=== PATIENT | male | born 1955 | race Caucasian/White ===

== ENCOUNTER → 2016-11-06 | Outpatient (CLI) | payer BC ==
[~2016-11-06] MED LIST: GADOBUTROL 10 ML VIAL IVP ONE
== END ==
LOC: FIMAGING 09:17
PROVIDERS: ATTEND Internal Medicine
DX: R51 Headache (principal); R29.818 Other symptoms and signs involving the nervous system
CPT/HCPCS: A9585

== ENCOUNTER → 2016-11-19 | Outpatient (CLI) | payer BC | LOC: FIMAGING 18:47 | PROVIDERS: ATTEND Internal Medicine | DX: M48.02 Spinal stenosis, cervical region (principal); M50.21 Other cervical disc displacement, high cervical region; M46.92 Unspecified inflammatory spondylopathy, cervical region ==

== ENCOUNTER → 2016-11-28 | Outpatient (CLI) | payer BC | LOC: FIMAGING 13:57 | PROVIDERS: ATTEND Internal Medicine | DX: Z13.820 Encounter for screening for osteoporosis (principal); B20 Human immunodeficiency virus [HIV] disease; Z87.81 Personal history of (healed) traumatic fracture ==

== ENCOUNTER → 2017-01-01 | Outpatient (CLI) | payer BC | LOC: FIMAGING 11:45 | PROVIDERS: ATTEND Physician Assistant Surgical | DX: Z09 Encounter for follow-up examination after completed treatment for conditions other than malignant neoplasm (principal); M43.22 Fusion of spine, cervical region; M48.02 Spinal stenosis, cervical region ==

== ENCOUNTER → 2018-04-14 | Outpatient (CLI) | payer BC | LOC: FIMAGING 12:59 | PROVIDERS: ATTEND Internal Medicine | DX: R42 Dizziness and giddiness (principal); E78.5 Hyperlipidemia, unspecified ==

== ENCOUNTER 2018-05-12 18:20 | Emergency (ER) | payer BC ==
[2018-05-12] MEDS ORDERED: ONDANSETRON 4 MG/2 ML VIAL ONE (18:48)
[2018-05-12] MEDS ORDERED: ONDANSETRON 4 MG/2 ML VIAL IVP ONE (18:51)
[2018-05-12] MEDS ORDERED: NS 1,000 ML IV ONE (18:56)
[2018-05-12] MEDS ORDERED: methylPREDNISolone SOD SUCC 125 MG/2 ML VIAL IVP ONE (18:56)
--- NOTE | 2018-05-12 18:59 | EDPHY ---
H & P Time Seen by Provider: 05/12/18 18:36 HPI/ROS: CHIEF COMPLAINT: Dysphagia HISTORY OF PRESENT ILLNESS: The patient is a 63-year-old male who presents emergency department with dysphagia. The patient underwent cervical fusion yesterday by Dr. Marvin. He was discharged. He was doing well until today when he started to have difficulty swallowing. No unable to tolerate any liquids. He has not been able to take his last dose of antibiotic or pain medicine. He has had no fevers or chills. He has no shortness of breath. No stridor. REVIEW OF SYSTEMS: 10 systems were reveiwed and are negative with the exception of the elements mentioned in the history of present illness. Past Medical/Surgical History: Kidney disease, HIV, allergies Past surgical history: Cervical fusion x2, appendectomy The social history: Patient does not smoke Smoking Status: Unknown if ever smoked Physical Exam: Vitals noted GENERAL: No acute distress, alert. HEENT: Eyes normal to inspection. Oropharynx is normal. No signs of dehydration. NECK: No stridor. C-collar is in place. The dressing on his anterior neck is clean dry and intact. There is no significant swelling. RESPIRATORY: Clear to auscultation bilaterally, no rales, rhonchi or wheezing. CVS: Regular rate and rhythm, no rubs, murmurs, or gallops. ABDOMEN: Soft, nontender, nondistended, no organomegaly. BACK: Normal to inspection, no CVA tenderness. SKIN: Normal color, no rash, warm, dry. No pallor. EXTREMITIES: Normal. NEURO/PSYCH: Alert and oriented, normal mood and affect. No obvious deficits Constitutional: Initial Vital Signs Temperature (C) 37.1 C 05/12/18 18:22 Heart Rate 115 H 05/12/18 18:22 Respiratory Rate 16 05/12/18 18:22 Blood Pressure 123/76 H 05/12/18 18:22 O2 Sat (%) 92 05/12/18 18:22 O2 Delivery Mode Room Air Allergies/Adverse Reactions: shellfish derived Allergy (Severe, Verified 05/12/18 18:22) Anaphylaxis Sulfa (Sulfonamide Antibiotics) Allergy (Intermediate, Verified 05/12/18 18:22) Rash Home Medications: Medication Instructions Recorded Abacavir/Dolutegravir/Lamivudi 1 each PO HS 12/28/14 [Triumeq Tablet] Acetaminophen/ASA/Caffeine 1 each PO DAILY PRN 12/28/14 [Excedrin Tablet] Amitriptyline HCl [Elavil 100 MG 100 mg PO HS 12/28/14 (RX)] Levothyroxine [Synthroid] 250 mcg PO DAILY06 12/28/14 Naproxen Sodium [Aleve] 220 mg PO BID PRN 12/28/14 Promethazine HCl [Phenergan] 25 mg PO HS PRN 12/28/14 TESTOSTERONE [Androgel 1.62% pump] 1 aide TD DAILY 12/28/14 Triamcinolone Acetonide [Nasacort] 2 spray EACHNARE DAILY 12/28/14 Ipratropium 0.06% Nasal [Atrovent 2 sprays EACHNARE TID #1 mdi 11/02/15 0.06% Nasal] Medical Decision Making ED Course/Re-evaluation: In the emergency department I discussed possible etiologies with the patient. I answered all his questions. I discussed the case with Dr. Román Latham from Neurosurgery. He recommended admission and x-ray imaging. He also recommended the patient receive Solu-Medrol 125 mg IV. Patient missed his last dose of Keflex was given Ancef 1 g IV. Patient was given morphine 2 mg IV and Zofran 4 mg IV for pain and nausea. I discussed the plan with the patient. Differential Diagnosis: My differential includes but is not limited to postoperative swelling, dysphagia , airway compromise Departure - Departure Disposition: [facility] Inpatient Acute Clinical Impression: Dysphagia Qualifiers: Dysphagia type: unspecified Qualified Code(s): R13.10 - Dysphagia, unspecified Condition: Fair Referrals: Zara Jose MD [Primary Care Provider] - As per Instructions
[2018-05-12] MEDS ORDERED: MAGNESIUM HYDROXIDE 30 ML UDCUP PO PRN (20:21)
[2018-05-12] MEDS ORDERED: BISACODYL 10 MG SUPP PR PRN (20:21)
[2018-05-12] MEDS ORDERED: ONDANSETRON 4 MG/2 ML VIAL IVP PRN (20:21)
[2018-05-12] MEDS ORDERED: METHOCARBAMOL 750 MG in NS 50 ML IV PRN (20:48)
[2018-05-12] MEDS ORDERED: HYDROmorphONE/DILAUDID 1 MG/ML INJ IVP ONE (20:57)
[2018-05-13] MEDS ORDERED: NS 1,000 ML IV ONE (06:26)
[2018-05-13] MEDS ORDERED: oxyCODONE IR 5 MG TAB PO ONE (06:42)
[2018-05-13] MEDS ORDERED: PANTOPRAZOLE SODIUM 40 MG VIAL IVP SCH (09:00)
--- NOTE | 2018-05-13 09:49 | GCON ---
[f rep st] CONSULTATION DATE OF CONSULTATION: 05/13/2018 REASON FOR CONSULTATION: In the emergency room, dysphagia. HOSPITAL COURSE/HISTORY/MAJOR MEDICAL FINDINGS: The patient is a 63-year-old gentleman who underwent C5 to C7 hardware removal with ACDF at C4-5 on 05/11/2018. He was having some difficulty swallowing and presented to the emergency room for further evaluation. Here in the emergency room, he did rece kerry 125 mg of Solu-Medrol and states that his swelling has greatly improved. He is tolerating a smoo thie without any difficulty. He was able to tolerate his medications without problems. The patient denies any new weakness, any difficulty with breathing, any swelling in his throat. REVIEW OF SYSTEMS: Review of systems is negative other than what is stated in the HPI Please see pe rtinent negatives and pertinent positives. PAST MEDICAL HISTORY: Significant for kidney disease, HIV positive status as well as seasonal allerg ies. PAST SURGICAL HISTORY: Significant for prior cervical fusion C5 to C7 with hardware removal and ACDF at C4-5. Prior appendectomy. SOCIAL HISTORY: The patient does not smoke. He does live here locally and his is at bedside with him today. ALLERGIES: Include sulfa and shellfish. HOME MEDICATIONS: Include Triumeq 1 p.o. at bedtime, Excedrin 1 p.o. daily, Elavil 100 mg p.o. at be dtime, Synthroid 250 mcg p.o. daily, Phenergan 25 mg 1 p.o. at bedtime, testosterone gel daily, Nasac ort 2 sprays in each nares daily and Atrovent nasal sprays daily. PHYSICAL EXAM: VITAL SIGNS: BP is 141/84, heart rate is 104, respiratory rate is 18, he is 93% on r oom air, temperature is 36.6. GENERAL: The patient is in no acute distress. He is alert and orient ed x3. He answers all questions appropriately. His affect is appropriate to given situation. NEURO LOGIC: Cranial nerves 2-12 grossly intact. EOMI and PERRLA. Patient has 5/5 and equal bilateral up per and bilateral lower extremities, including deltoids, triceps, biceps, wrist flexors, extensors, i nterossei, intrinsic automatic pilot mechanic, iliopsoas, hamstrings, quadriceps, plantar flexion, dorsiflexion, and EHL. NECK: Soft and palpable and his incision is clean, dry, and intact. DIANDRA drain is serosanguineous. DIAGNOSTIC REVIEW: Patient underwent x-rays which demonstrated intact hardware with some mild prever tebral edema. ASSESSMENT AND PLAN: The patient is a 63-year-old gentleman who is postop day 2 from hardware remova l from C5 to C7 with an ACDF at C4-5 who has dysphagia who has improved with IV steroids. He was see n both by myself and Dr. Marvin in the emergency room this morning. At this point time, we wi ll go ahead and will send him home with a 1 time prescription of Decadron in case he needs this later today and if his dysphagia increases he will call our office prior to taking this medication and fur ther discuss. We will also go ahead and discontinue his DIANDRA drain as it has had low output only 10 cc out yesterday and 10 cc out today. Again, the patient was seen in the emergency room and discharged from the emergency room. /[id number]/MODL
[2018-05-13 09:50] VITALS: BP 141/61
[2018-05-13] MEDS ORDERED: ENOXAPARIN 40 MG/0.4 ML SYR SC SCH (10:00)
[2018-05-13] MEDS ORDERED: LEVOTHYROXINE 100 MCG/5 ML SYR IVP SCH (10:00)
== END 2018-05-13 09:49 | disposition home or self-care (01) ==
LOC: UNDOADMOB 18:52
DX: R13.10 Dysphagia, unspecified (principal); Z98.1 Arthrodesis status; Z90.89 Acquired absence of other organs; Z21 Asymptomatic human immunodeficiency virus [HIV] infection status; Z88.2 Allergy status to sulfonamides; Z91.013 Allergy to seafood
CPT/HCPCS: 96365; J0690; J1170; J2270; J2405; J2800; J2930

== ENCOUNTER → 2018-05-26 | Outpatient (CLI) | payer BC | LOC: FIMAGING 14:33 | PROVIDERS: ATTEND Physician Assistant Surgical | DX: I82.722 Chronic embolism and thrombosis of deep veins of left upper extremity (principal) ==

== ENCOUNTER → 2018-08-05 | Outpatient (CLI) | payer BC | LOC: FIMAGING 11:23 | PROVIDERS: ATTEND Neurological Surgery | DX: Z09 Encounter for follow-up examination after completed treatment for conditions other than malignant neoplasm (principal); Z98.1 Arthrodesis status ==

== ENCOUNTER 2018-08-22 22:42 | Inpatient (IN) | payer BC ==
[2018-08-22] MEDS ORDERED: METOCLOPRAMIDE 10 MG/2 ML VIAL IVP ONE (23:37)
[2018-08-22] MEDS ORDERED: DEXAMETHASONE 10 MG/ML VIAL IVP ONE (23:37)
[2018-08-22] MEDS ORDERED: NS 1,000 ML IV ONE (23:37)
--- NOTE | 2018-08-22 23:37 | EDPHY ---
H & P Stated Complaint: Headache past month, escalating in pain, nausea, hx subarchnoid & neck fusn Source: Patient Exam Limitations: No limitations - Personal History Current Tetanus Diphtheria and Acellular Pertussis (TDAP): Yes - Medical/Surgical History Hx Asthma: Yes Hx Chronic Respiratory Disease: No Hx Diabetes: No Hx Cardiac Disease: No Hx Renal Disease: No Hx Cirrhosis: No Hx Alcoholism: No Hx HIV/AIDS: Yes Hx Splenectomy or Spleen Trauma: No Other PMH: med hx-kidney disease,+HIV,asthma/seasonal allergies. surg-ant fusion c-3-c4-c5,deviated septum, appendectomy, anaphalaxis to shellfish, anterior cervical disectomy fusion Apr 2018 - Social History Smoking Status: Former smoker Time Seen by Provider: 08/22/18 23:31 HPI/ROS: HPI: This is a 63-year-old male who presents with Chief Complaint: Headache past month, escalating in pain, nausea, hx subarchnoid & neck fusn Location: Frontal and right scientologist Quality: Sharp, constant pain Duration: 1 month Signs and Symptoms: no fever, + nausea, no vomiting, no photophobia, no noise sensitivity, no neck stiffness, no ear pain, no tinnitus, no nasal congestion, no sinus pressure, no weakness, no radiation, no aura Timing: Acute, constant Severity: 810 Context: Patient has a history of spontaneous subarachnoid hemorrhage, HIV positive (undetectable viral load and excellent CD4 percentage) that occurred approximately 20 years ago, anterior fusion of C3, C4, C5 with anterior cervical diskectomy and fusion [address] Marvin presents with 1 month history of frontal and right scientologist sharp, constant, nonradiating pain. Pain has continued to escalate over the last few days. Patient avoids NSAIDs secondary to his fusion in 2019 but due to daily headaches, "got the okay to take Excedrin for the last 1 week" with no relief of symptoms. Patient denies thunderclap symptoms or worse headache of life. No previous history of migraine headaches. Patient reports that "Dilaudid has worked in the past." He has a shellfish allergy and adamantly declines IV contrast administration. Does not take any blood thinners. Modifying Factors: Excedrin last week Comment: ROS: A comprehensive 10 system review of systems is otherwise negative aside from elements mentioned in the history of present illness. MEDICAL/SURGICAL/SOCIAL HISTORY: Medical history: kidney disease,+HIV,asthma/seasonal allergies, anaphylaxis to shellfish Surgical history: ant fusion c-3-c4-c5,deviated septum, appendectomy, , anterior cervical disectomy fusion Apr 2018 Social history: Former smoker. Retired. . Family history noncontributory. CONSTITUTIONAL: Extremely well-appearing elderly white male, awake and alert, no obvious distress HEENT: Atraumatic and normocephalic, PERRL, EOMI. Nares patent; no rhinorrhea; no nasal mucosal edema. Septal piercing noted. Tympanic membranes clear. Oropharynx clear, no exudate and moist pink mucosa. Airway patent. No lymphadenopathy. No meningismus. Cardiovascular: Normal S1/S2, regular rate, regular rhythm, without murmur rub or gallop. PULMONARY/CHEST: Symmetrical and nontender. Clear to auscultation bilaterally. Good air movement. No accessory muscle usage. ABDOMEN: Soft, nondistended, nontender, no rebound, no guarding, no peritoneal signs, no masses or organomegaly. No CVAT. EXTREMITIES: 2/2 pulses, strength 5/5, no deformities, no clubbing, no cyanosis or edema. NEUROLOGICAL: no focal neuro deficits. GCS 15. Cranial nerves 2-12 grossly intact. Speech fluent. SKIN: Warm and dry, no erythema. no rash. Good capillary refill. (Davina Asif) Constitutional: Initial Vital Signs Temperature (C) 37.1 C 08/22/18 22:44 Heart Rate 100 08/22/18 22:44 Respiratory Rate 18 08/22/18 22:44 Blood Pressure 149/102 H 08/22/18 22:44 O2 Sat (%) 95 08/22/18 22:44 O2 Delivery Mode Room Air O2 (L/minute) 2 Allergies/Adverse Reactions: shellfish derived Allergy (Severe, Verified 08/22/18 22:51) Anaphylaxis Sulfa (Sulfonamide Antibiotics) Allergy (Intermediate, Verified 08/22/18 22:51) Rash Home Medications: Medication Instructions Recorded Abacavir/Dolutegravir/Lamivudi 1 each PO HS 12/28/14 [Triumeq 600-50-300 mg Tablet] Amitriptyline HCl [Elavil 100 MG 100 mg PO HS 12/28/14 (*)] Levothyroxine [Synthroid 125 mcg 250 mcg PO DAILY06 12/28/14 (*)] Promethazine HCl [Phenergan 25mg 25 mg PO Q6H PRN 12/28/14 (*)] TESTOSTERONE [Androgel 1.62% pump] 1 aide TD DAILY 12/28/14 Albuterol [Proventil Inhaler HFA 1 - 2 puffs IH Q4H PRN 05/12/18 (*)] Ezetimibe [Zetia 10 MG (*)] 10 mg PO DAILY 05/12/18 Folic Acid [Folic Acid 1 MG (*)] 1 mg PO DAILY 05/12/18 Herbals/Supplements -Info Only 1 ea PO DAILY 05/12/18 Methotrexate Sodium [Rheumatrex] 17.5 mg PO SA@09 05/12/18 Omeprazole 40 mg PO DAILY 05/12/18 oxyCODONE IR [Oxycodone Ir (*)] 5 - 10 mg PO Q4H PRN 05/12/18 Fluticasone/Vilanterol [Breo 1 each IH DAILY 08/23/18 Ellipta 200-25 Mcg INH] Sumatriptan Succinate [Imitrex] 100 mg PO DAILY PRN 08/23/18 Medical Decision Making ED Course/Re-evaluation: Vital signs reviewed and show mildly elevated blood pressure upon arrival. Placed on secured entrance monitor. IV access, laboratory studies, along with IV fluids and medications ordered Due to prior history of subarachnoid hemorrhage and daily headache x1 month; head CT imaging ordered I discussed ordering CTA head and neck, but patient adamantly declined due to shellfish allergy. Patient given 1 L normal saline, IV Reglan, IV Dilaudid, IV Decadron and IV Benadryl Notified by RN that patient politely declined Decadron and Benadryl 0020: Called by overnight Radiology who reports head CT scan shows extensive edema in the right cerebral hemisphere with diffuse cortical effacement as well as mass effect with shift of the midline right left about 7 mm. No intracranial hemorrhages suspected. 0022: Spoke with Neurosurgery, Dr. Street, and reviewed head CT scan results. Recommends MRI with and without contrast. Infectious versus neoplastic workup. Blood cultures ordered. Hold off on IV Decadron at the moment. 0037: ED decision to consult hospitalist for admission. Spoke with Dr. Aly, who kindly agrees to admit patient and provide further care. 0103: Laboratory studies reviewed and show no leukocytosis, no anemia, no platelet dysfunction, no coagulopathy. Potassium 3.8, BUN 27, creatinine 1.3 This patient was seen under the supervision of my secondary supervising physician. I evaluated and cared for this patient with attending. (Davina Asif) Differential Diagnosis: Headache including but not limited to subarachnoid hemorrhage, migraine headache , tension headache and infectious causes such as meningitis, pharyngitis and sinusitis. (Davina Asif) - Data Points Laboratory Results: Laboratory Results 08/22/18 23:23 08/22/18 23:23 Medications Given: Amitriptyline HCl (Elavil) 100 mg PO HS IAIN Stop: 02/19/19 20:59 Last Admin: 08/23/18 21:54 Dose: 100 mg Calcium Carbonate (Tums) 500 - 1,000 mg PO TID PRN PRN Reason: Indigestion Stop: 02/19/19 05:04 Last Admin: 08/23/18 08:53 Dose: 1,000 mg Dexamethasone (Decadron Injection) 4 mg IVP Q8HRS IAIN Stop: 02/19/19 20:59 Last Admin: 08/24/18 04:25 Dose: 4 mg Guaifenesin/Codeine Phosphate (Robitussin Ac) 10 ml PO Q6HRS PRN PRN Reason: Cough, Moderate Stop: 02/19/19 08:32 Last Admin: 08/23/18 11:01 Dose: 10 ml Hydromorphone HCl (Dilaudid) 0.5 - 1 mg IVP Q3HRS PRN PRN Reason: Pain, Breakthrough Stop: 09/02/18 04:43 Last Admin: 08/23/18 21:55 Dose: 1 mg Levetiracetam (Keppra) 750 mg PO BID IAIN Stop: 02/19/19 10:44 Last Admin: 08/23/18 21:54 Dose: 750 mg Levothyroxine Sodium (Synthroid) 250 mcg PO DAILY06 IAIN Stop: 02/19/19 10:29 Last Admin: 08/24/18 04:25 Dose: 250 mcg Miscellaneous Medication (Abacavir/Dolutegravir/Lamivudi [Triumeq 600-50-300 Mg Tablet]) 1 each PO HS [facility] Stop: 02/19/19 20:59 Last Admin: 08/24/18 03:19 Dose: Not Given Miscellaneous Medication (Testosterone [Androgel 1.62% Pump]) 1 aide TD DAILY [facility] Stop: 02/19/19 12:14 Last Admin: 08/23/18 13:01 Dose: Not Given Ondansetron HCl (Zofran) 4 mg IVP Q4HRS PRN PRN Reason: Nausea/Vomiting, Can't Take PO Stop: 02/19/19 02:17 Last Admin: 08/23/18 10:59 Dose: 4 mg Oxycodone HCl (Oxycodone Ir) 5 - 10 mg PO Q4HRS PRN PRN Reason: Pain, Severe Able to Take PO Stop: 09/02/18 04:43 Last Admin: 08/24/18 04:30 Dose: 10 mg Pantoprazole Sodium (Protonix) 40 mg PO DAILY [facility] Stop: 02/19/19 10:29 Last Admin: 08/23/18 10:42 Dose: 40 mg Senna/Docusate Sodium (Senokot-S) 1 - 2 tab PO BID IAIN PRN Reason: Protocol Stop: 02/19/19 20:59 Last Admin: 08/23/18 21:54 Dose: 1 tab Discontinued Medications Dexamethasone (Decadron Injection) 10 mg IVP EDNOW ONE Stop: 08/22/18 23:38 Last Admin: 08/23/18 00:08 Dose: Not Given Dexamethasone (Decadron Injection) 4 mg IVP Q6HRS [facility] Stop: 02/19/19 05:59 Last Admin: 08/23/18 07:26 Dose: Not Given Dexamethasone (Decadron Injection) 10 mg IVP ONCE ONE Stop: 08/23/18 07:11 Last Admin: 08/23/18 08:32 Dose: 10 mg Dexamethasone (Decadron Injection) 4 mg IVP Q6HRS [facility] Stop: 02/19/19 12:59 Last Admin: 08/23/18 13:07 Dose: 4 mg Diphenhydramine HCl (Benadryl Injection) 25 mg IVP EDNOW ONE Stop: 08/22/18 23:38 Last Admin: 08/23/18 00:07 Dose: Not Given Hydromorphone HCl (Dilaudid) 0.5 mg IVP EDNOW ONE Stop: 08/22/18 23:39 Last Admin: 08/23/18 00:07 Dose: 0.5 mg Hydromorphone HCl (Dilaudid) 1 mg IVP EDNOW ONE Stop: 08/23/18 02:24 Last Admin: 08/23/18 02:24 Dose: 1 mg Sodium Chloride (Ns) 1,000 mls @ 0 mls/hr IV ONCE ONE; Wide Open PRN Reason: Protocol Stop: 08/22/18 23:38 Last Admin: 08/23/18 00:00 Dose: 1,000 mls Metoclopramide HCl (Reglan Injection) 10 mg IVP EDNOW ONE Stop: 08/22/18 23:38 Last Admin: 08/23/18 00:01 Dose: 10 mg Departure - Departure Disposition: [facility] Inpatient Acute Clinical Impression: Cerebral edema, Midline shift of brain Condition: Fair
[2018-08-22] MEDS ORDERED: HYDROmorphONE/DILAUDID 2 MG/ML INJ IVP ONE (23:38)
[2018-08-22] MEDS ORDERED: HYDROmorphONE/DILAUDID 1 MG/ML INJ ONE (23:40)
--- NOTE | 2018-08-23 00:40 | PDCONSULT ---
Engine Testing Supervisor Note: NEUROSURGERY imaging reviewed, full consult to follow in AM 63M with history of SAH and HIV+, 1 month of headache, CT shows extensive edema in right temporal lobe, mild shift - neoplastic vs. infectious are primary considerations - recommend MRI +/- contrast - if this shows neoplasm, recommend dex 4q6 - lab workup for infection - monitor in SDU or ICU, q2h neurochecks - further recs to follow imaging Yen[facility]
[2018-08-23 00:55] LABS: INR 0.97 (0.83-1.16); PROTIME(PATIENT) 12.5 SEC (12.0-15.0)
[2018-08-23 01:01] LABS: PLATELET COUNT 233 10^3/uL (150-400)
[2018-08-23] MEDS ORDERED: GADOBUTROL 10 ML VIAL IVP ONE (01:13)
[2018-08-23] MEDS ORDERED: ONDANSETRON DISINTEGRATING 4 MG TAB PO PRN (02:18)
[2018-08-23] MEDS ORDERED: ACETAMINOPHEN 325 MG TAB PO PRN (02:18)
[2018-08-23] MEDS ORDERED: HYDROmorphONE/DILAUDID 1 MG/ML INJ ONE (02:19)
[2018-08-23] MEDS ORDERED: HYDROmorphONE/DILAUDID 1 MG/ML INJ IVP ONE (02:23)
[2018-08-23] MEDS ORDERED: CALCIUM CARBONATE 500 MG CHEWABLE TAB PO PRN (05:05)
[2018-08-23] MEDS: HYDROmorphONE/DILAUDID 1 MG/ML INJ IVP PRN ×4 (05:30→21:55)
[2018-08-23] MEDS ORDERED: DEXAMETHASONE 4 MG/ML VIAL IVP SCH ×2 (06:00→13:00)
--- NOTE | 2018-08-23 06:40 | GHP ---
[f rep st] HISTORY AND PHYSICAL DATE OF ADMISSION: 08/23/2018 SOURCE: Patient provides history, appears reliable. Patient's is at bedside and supplements details. EMR was reviewed and case discussed with ED provider. CHIEF COMPLAINT: Headache. HISTORY OF PRESENT ILLNESS: This is a very pleasant 63-year-old gentleman with a past medical history significant for asthma, HIV, GERD, hypothyroidism, BPH, spinal stenosis status post anterior cervical fusion, who presents to the emergency department today with complaints of progressively worsening headaches over the course of the past month. The patient reports pain is frontal in the right temporal region. He denies any associated changes in vision, focal deficits, dysarthria. He has noted in the past 24 hours he started to occasional lean to the right when he is walking but he has not had any unusual falls or injuries. Patient was hiking and tripped on a branch, but did not have any head injury. He again denies any focal deficits. He has been having increasing pain, sharp in nature, constant, worse with coughing, moving, straining. He has had some nausea without any vomiting. Patient does have a remote history of subarachnoid hemorrhage 20 years ago, spontaneous. Given patient's ongoing symptoms, he is to be new for to Neurology for additional evaluation. However, his pain today was increasingly worse, up to 9-10/10. REVIEW OF SYSTEMS: Ten systems reviewed, otherwise negative except as noted above. ALLERGIES: Shellfish and sulfa. HOME MEDICATIONS: As available in EMR, not yet reconciled. Please see EMR. Oxy IR, Flomax, testosterone, ranitidine, Phenergan, MiraLAX, omeprazole, methotrexate, methocarbamol, levothyroxine, probiotic, and fiber tabs, folic acid, Breo Ellipta, finasteride, Zetia, docusate, amitriptyline, albuterol, and Triumeq. The patient reports that over the last several weeks he has been removing medications from his usual medication list including his omeprazole, ranitidine , tamsulosin, finasteride as he thought that it was perhaps contributing to his headache symptoms. PAST MEDICAL HISTORY: Significant for hypothyroidism, hyperlipidemia, GERD, chronic pain, BPH, HIV, asthma, a single seizure 20 years ago, HAV. PAST SURGICAL HISTORY: Significant for anterior C3-4, C4-5 fusion, deviated septum, appendectomy. FAMILY HISTORY: Mother with hemorrhagic CVA. Father with history of ischemic stroke. Mother and sister with history of breast cancer. 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 Denies any tobacco, drugs, or alcohol. CODE: Full. PHYSICAL EXAM: VITALS: Upon arrival to the emergency department, blood pressure 149/102, heart rate 100, respiratory rate 18, O2 saturation 95% on room air, temperature 37.1. Current vitals available, blood pressure is 121/87 , heart rate 76, respiratory rate 18, O2 sat is 96% on room air. GENERAL: No acute distress. Very pleasant adult gentleman is resting quietly in bed. His is at bedside. HEAD: Normocephalic, atraumatic. EYES: Extraocular muscles are grossly intact. Pupils equal, round, symmetric with decreased reactivity to light bilaterally, but symmetric. No scleral icterus or conjunctival injection. ENT: Mucous membranes appear moist. No oropharyngeal erythema. Dentition intact. NECK: Supple, trachea midline. CV: Regular rate and rhythm. No murmurs, rubs, or gallops appreciated. RESPIRATORY: Unlabored breathing. Lung sanchez diminished bilaterally but no wheezes or rhonchi or rales. ABDOMEN: Positive bowel sounds. Soft, nontender to palpation. No rebound, guarding, or masses appreciated. : No suprapubic tenderness to palpation. No CVA tenderness. MUSCULOSKELETAL: Strength grossly normal. Moves all extremities. NEURO: Grossly nonfocal. Cranial nerves 2-12 are intact symmetric bilaterally. Strength 5/5 upper lower extremities. No focal deficits. PSYCH: Thought process, content, questions appropriate. Patient is pleasant and cooperative. LABORATORY STUDIES: WBC 6.71, H and H is 14.7, 43.5, MCV 90.2, platelet count is 233. No bands. PT is 12.5, INR 0.97, PTT is 25.5. Sodium 139, potassium 3.8, chloride 106, CO2 is 23, anion gap 10, BUN 27, creatinine 1.3, GFR of 56, glucose 107, calcium is 9.2. Laboratory studies from 08/16/18, reviewed. Creatinine at that time was 1.4. A1c 5.8. TSH is 7.700 with a free T4 of 1.75. CT head preliminary report was reviewed from [facility], negative for any acute intracranial hemorrhage. There is a large area of edema in the right cerebral hemisphere involving the posterior frontal, anterior parietal and right temporal lobes. There is diffuse cortical effacement of the right cerebral hemisphere with some shift of the midline, [id number] about 7 mm with recommendation for MRI. Preliminary report [facility] MRI brain with and without showing approximately 3.5 x 4.5 x 3.5 cm peripherally enhancing mass centered within the right temporal lobe with nodular enhancing components, likely subacute to chronic hemorrhagic components. Marked surrounding vasogenic edema with mass effect resulting in leftward midline shift approximately 6-7. There is compression of the right lateral ventricle. No acute intracranial hemorrhage identified. Air-fluid level right maxillary sinus. 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 Abscess thought less likely given absence of significant restricted diffusion. Preliminary results were reviewed with the patient and his . ASSESSMENT AND PLAN: Pleasant 63-year-old gentleman with history of human immunodeficiency virus, HLD, gastroesophageal reflux disease, hypothyroidism, asthma, and spinal stenosis, who presents to the emergency department with complaints of 1 month of headache. 1. Right temporal lobe mass. Case was previously discussed with Neurosurgery prior to the MRI with recommendations to initiate steroids if imaging favored a mass. I discussed with the patient risks, benefits, recommendation of initiating high-dose Decadron scheduled. At this time he is not comfortable proceeding with this steroids. He would prefer to additionally discuss with Neurosurgery due to a recent anterior cervical diskectomy. The patient reports he is followed by Dr. Marvin. We will plan to continue with supportive care and pain management including oxy and Dilaudid p.r.n. The patient reports the latter works best for his pain. 2. Nausea. Zofran, status post Reglan in the ED. Continue with supportive care. 3. GERD. The patient declines to reinitiate his PPI or H2 alejo. Tums p.r.n. 4. BPH. Declines starting his regular evening medications including Flomax. 5. History of asthma. Neb p.r.n. 6. Hypothyroidism: Continue levothyroxine. 7. HLD. Resume ezitimibe. 8. HIV. Continue patient's Triumeq. 9. Renal insufficiency, chronic. Continue monitoring electrolytes, currently adequate. 10. History of spinal stenosis. Supportive care, pain medications p.r.n. 11. Fluid, electrolyte, nutrition. Diet as tolerated. Encourage oral hydration. Electrolytes adequate, replace if needed. 12. Prophylaxis SCDs. Holding anticoagulation due to increased bleeding risk. 13. Cor full. 14. Disposition: The patient admitted to inpatient status on SDU for close neurologic monitoring. /[id number]/MODL MTDD
[2018-08-23] MEDS ORDERED: DEXAMETHASONE 10 MG/ML VIAL IVP ONE (07:10)
--- NOTE | 2018-08-23 08:00 | GCON ---
[f rep st] CONSULTATION CHIEF COMPLAINT: Headache for over the past month with escalating pain, nausea with history of subarachnoid hemorrhage years ago with also prior and most recent neck fusion. HISTORY OF PRESENT ILLNESS: The patient is a 63-year-old gentleman who was admitted to the Internal Medicine Service and we were consulted for some edema noted on a CT scan. The patient states over the past month he has had escalating headaches as well as some nausea. He does have a history of chronic headaches. He was seen by his infectious disease doctor who follows him for his HIV status, Dr. Jose, and she ordered a referral to Neurology. The patient saw Waylon Toro at Neurology and an MRI was ordered for this next week. The patient states that he came into the emergency department yesterday with some headaches and imaging was ordered which showed some significant edema. A followup MRI was obtained as well. He describes no fevers or chills. Some nausea. No vomiting. No photophobia. No sensitivity to noise. He denies any neck stiffness. No ringing in his ears. No upper respiratory or lower respiratory complaints such as nasal congestion, cough, shortness of breath. No sinus pressure. He denies any specific weakness, but did state when he was walking yesterday he felt a little unstable on his feet. He does have a history of a prior subarachnoid hemorrhage. He has also had a prior cervical fusion with Dr. Marvin, most recent in April 2018. He did take an Excedrin yesterday to treat his headache, but is off any NSAIDs due to his recent fusion procedure. He was admitted to the intensive care unit and his is at his bedside. No chest pain or shortness of breath. No abdominal complaints. No changes in status. REVIEW OF SYSTEMS: Complete 10-point review of systems was negative aside what was mentioned in HPI. PAST MEDICAL HISTORY: Significant for the followin. Kidney disease. 2. HIV positive. 3. Asthma, seasonal allergies. 4. Anaphylaxis to shellfish. SURGICAL HISTORY: 1. Recent anterior cervical fusion with Dr. Marvin. 2. Deviated septum repair. 3. Appendectomy. 4. Prior cervical fusion years ago. Most recent surgery Dr. Marvin was an additional adjacent segment disease procedure which more adjacent level was added. ALLERGIES: To shellfish and sulfa. HOME MEDICATIONS: Prior to admission, amitriptyline, levothyroxine, Triumeq 600 -50-300, promethazine, testosterone, albuterol, Keflex, Colace, Zetia, Proscar, fluticasone, folic acid, herbal supplements, Robaxin, , omeprazole, MiraLAX, Zantac, Flomax, oxycodone. IMMUNIZATIONS: Reported up to date. TRAVEL: No recent travel. PHYSICAL EXAM: GENERAL: This is an awake, alert, oriented male in no acute distress. MOST RECENT VITAL SIGNS: Blood pressure 121/87 with a MAP of 98, 76 heart rate, 18 respirations, 96% on room air. HEENT: Head is normocephalic, atraumatic. Pupils are equal, round, reactive to light. EOMI is intact. Full visual sanchez by confrontation. Ears are patent. Nose is patent. NECK: Soft and supple. No midline tenderness. Full range of motion in flexion, extension , lateral bending, and rotation. RESPIRATORY AND CARDIAC: Deferred. ABDOMEN: Soft, nontender. No peritoneal signs. AND RECTAL: Deferred. NEURO: Patient is awake, alert, oriented to name, place, location, date, time, situation. Memory is intact to immediate, past, and current events. SPEECH: No aphasia, dysarthria, dysphonia. Cranial nerves 2-12 grossly intact. 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 Reflexes of biceps, triceps, brachioradialis, knee jerk and ankle jerk 2+/4. Toes are downgoing bilaterally. Galeana's negative. Babinski negative. There is no evidence of clonus. The patient does have a left-sided pronator drift. MEDICAL DECISION MAKING/DIAGNOSTIC STUDIES: Laboratory tests obtained on 2018 shows a white count of 6.71 with an H and H of 14.7 and 43.5 with a platelet count of 233. Coags on 08/22/2018, PT of 12.5, INR of 0.97, PTT of 25.5. Chemistry on 08/22/2018, sodium 139, potassium 3.8, chloride 106, CO2 23 , BUN 27, creatinine 1.3, and a glucose of 107. CT scan of the head and MRI of the brain were reviewed which showed extensive edema and a mass lesion with mild shift noted in the right temporal lobe. Considerations for neoplastic versus infectious causes are considered. IMPRESSION: 1. Recent admission, current admission with headaches with right temporal lobe edema, mild shift and noted mass, likely GBM versus less likely infectious cause. 2. Multiple medical conditions including HIV history with patient reported high CD4 count and nondetectable viral load. The patient is under the care of Dr. Jose at [facility] PLAN AND DISCUSSION: The patient is a 63-year-old gentleman that came in to the emergency department with worsening headache. He was seen by Dr. Jose and she did refer him to Neurology. Neurology ordered an MRI for this next week. The patient worsened yesterday with worsening headache. When he came into the emergency department, a CT scan was obtained which showed extensive edema on the right temporal lobe with mild shift. A followup MRI was obtained that showed a large lesion mass in the right temporal lobe, likely GBM, although infectious causes need to be considered. Given his undetectable viral load and high CD4 count per patient's account, infectious cause is less likely. I reviewed the images with Dr. Street. He will see the patient here in the next few hours and review the images and develop a plan accordingly. The images were sent to Dr. Marvin who is his primary neurosurgeon and did his recent cervical fusion. We gave him a dose of 10 mg of Decadron and placed him on 4 q.6 hours Decadron as well. We will await a final visit with Dr. Street here shortly to develop a treatment plan accordingly. NEUROSURGERY STAFF ADDENDUM i have seen and evaluated the patient and I agree with the note by Jabari Valdivia, PAC I suspect that this is a glioblastoma, but lymphoma or infectious process are also considerations. He has a lot of surrounding vasogenic edema and I think a few days of IV steroids would be of benefit. I spoke to him and his family about the likely diagnoses and the natural history and prognosis. will likely try to proceed with biopsy/debulking/resection on Thursday. I will discuss with Dr. Goodrich as well. /[id number]/MODL MTDD
[2018-08-23] MEDS ORDERED: guaiFENesin/CODEINE PHOS 10 ML UDCUP PO PRN (08:33)
[2018-08-23] MEDS ORDERED: BENZONATATE 100 MG CAP PO PRN (08:33)
--- NOTE | 2018-08-23 08:37 | HOSPPROG ---
Hospitalist Progress Note Assessment/Plan: # brain mass - suspect GBM; also consider infection (although VL neg and nl CD4 ), lymphoma, other met - consider further imaging (C/A/P) to eval for primary - will need debulking and biopsy- Dr Street to see soon - decadron, pain control # HIV - well controlled, follows with Dr Jose - josue # BPH - flomax # hypothyroid - synthroid Subjective: still has REYES; seen with his and friends; we reviewed his MRI images Objective: Vital Signs Temp Pulse Resp BP Pulse Ox 37.1 C 76 18 131/87 H 96 08/22/18 22:44 08/23/18 02:48 08/23/18 02:48 08/23/18 04:00 08/23/18 02:48 Laboratory Results 08/23/18 05:57 08/23/18 05:57 08/22/18 08/23/18 08/24/18 05:59 05:59 05:59 Intake Total 250 Balance 250 PT 12.5 SEC (12.0-15.0) 08/22/18 23:23 INR 0.97 (0.83-1.16) 08/22/18 23:23 discussed with Jabari Valdivia MRI personally reviewed high risk - Physical Exam Constitutional: other (slightly unsteady on his feet) Eyes: anicteric sclera Ears, Nose, Mouth, Throat: hearing normal Cardiovascular: No edema Respiratory: no respiratory distress Gastrointestinal: No distension Genitourinary: No salcido in urethra Skin: warm Musculoskeletal: No joint effusion Neurologic: AAOx3 Psychiatric: not anxious ICD10 Worksheet Patient Problems: Problems Problem Status Onset Dysphagia Acute Cerebral edema Acute Midline shift of brain Acute
--- NOTE | 2018-08-23 09:04 | GCON ---
[f rep st] CONSULTATION MONOGRAM MAKER CONSULTATION REASON FOR ADMISSION: Brain mass. HISTORY OF PRESENT ILLNESS: I was asked to see the patient by Dr. Hillary Aly. The patient is an e xtremely pleasant 63-year-old white male, well known to me, with a past medical history including ast hma, chronic cough, hypothyroidism, hyperlipidemia, gastroesophageal reflux disease, benign prostatic hypertrophy, HIV, and a seizure in the past. He presented to the emergency room with severe headach es. These had worsened over the last 24 hours. He was brought to the emergency room, underwent MRI which revealed a right temporal mass. He was placed on Decadron. In discussion with the patient, he states that his headache is improved somewhat. He does admit to a cough which makes his headache wo rse. He was recently on Singulair and took himself off. There is no chest pain, pleuritic-type ches t pain or angina equivalent. There is no fever or night sweats. He is in good spirits. REVIEW OF SYSTEMS: Ten-point review of systems is performed and negative except for what is listed i n HPI. ALLERGIES: Include sulfa and shellfish. FAMILY HISTORY: Significant for stroke. MEDICATIONS: Include Flomax, testosterone, ranitidine, Phenergan, MiraLAX, omeprazole, methotrexate, methocarbamol, levothyroxine, Breo, finasteride, Zetia, amitriptyline, albuterol. SOCIAL HISTORY: No history of tobacco use. No history of alcohol use. 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 He is , is there with his . Has excellent family support. PHYSICAL EXAM: VITAL SIGNS: Blood pressure 131/87, pulse is 76, respiration 18, temperature 37.1, o xygen saturation 96% on room air. GENERAL: He is a well-developed, well-nourished 63-year-old white male who is resting comfortably in no acute distress. HEENT: Eyes: PERRLA, EOMI. Throat shows no erythema or tonsillar hypertrophy. NECK: Supple. No cervical adenopathy. HEART: Regular rate an d rhythm without murmurs, rubs, gallops. LUNGS: Diminished breath sounds but no wheeze. ABDOMEN: Soft, nontender. Bowel sounds are present in all 4 quadrants. EXTREMITIES: No clubbing, cyanosis, or edema. LABORATORIES: White count 6.7, hemoglobin 13, hematocrit 40, platelet count is 217. Sodium 136, pot assium 4.0, chloride 105, CO2 is 22, BUN 21, creatinine 1.1, glucose is 109. IMPRESSION: 1. Brain mass. 2. History of asthma. 3. Chronic cough. 4. Gastroesophageal reflux disease. 5. Human immunodeficiency virus positive with low viral load. 6. Hypothyroidism. 7. Cough. RECOMMENDATIONS: 1. Neurosurgery has been consulted. 2. Adequate pain control. 3. Agree with Decadron. 4. We will add some cough suppressants. /[id number]/MODL
--- NOTE | 2018-08-23 09:15 | ASMTCMCOM ---
CM Note CM Note Notes: Patient admitted for headaches x one month + nausea and gait instability. He has a hx of HIV (followed by Dr Jose) and recent cervial fusion (in Apr, Dr Marvin). Imaging suggests GBM. 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 Discharge needs TBD. Case Management will follow. Date Signed: 08/23/2018 09:14 AM Electronically Signed By:Dominique Linda RN
[2018-08-23] MEDS ORDERED: PROMETHAZINE HCL 25 MG TAB PO PRN (10:24)
[2018-08-23] MEDS ORDERED: ALBUTEROL 60 PUFFS/8 GM MDI IH PRN (10:24)
[2018-08-23] MEDS: LEVOTHYROXINE 125 MCG TAB PO SCH (10:42)
[2018-08-23] MEDS: levETIRAcetam 250 MG TAB PO SCH ×2 (10:42→21:54)
[2018-08-23] MEDS: PANTOPRAZOLE SODIUM 40 MG TAB PO SCH (10:42)
[2018-08-23] MEDS: ONDANSETRON 4 MG/2 ML VIAL IVP PRN (10:59)
--- NOTE | 2018-08-23 11:35 | PCMIDPN ---
Assessment/Plan: 1. Right temporal lobe lesion with mass effect/edema concerning for GBM: Sincerely appreciate neuro surgical assistance. Debulking planned for Thursday. At this point in time, clinical suspicion for underlying infection is low. Although the patient is on low-dose methotrexate and is HIV positive ( with a longstanding undetectable viral load, and excellent CD4 percentage), his net state of immunosuppression is low, making entities such as toxoplasmosis, tuberculoma, fungal infection or primary ASSOCIATE LOAN OFFICER lymphoma less likely. A brain abscess also seems less likely. Again, patient will have a tissue diagnosis on Thursday. Long conversation with patient and his today. Patient is taking the news extremely well. 2. HIV: Continue Triumeq. Have talked with pharmacy about the need to avoid cation binders during his hospitalization. Of note, the patient's daughter is not aware of his HIV diagnosis in they would like to keep that private for now. Subjective: I was notified this morning via a text message from Jabari Valdivia that patient was admitted last night for severe intractable headache. Imaging has revealed lesion in the right temporal lobe concerning for GBM. Came in to see patient, as he has been under my care for HIV for many years now. Patient did come to see me last week for headaches, which have progressed since his cervical fusion in April. He had asked for Imitrex at that time. I felt uncomfortable with that given the severity of the headaches, and referred him to Neurology. Patient had an appointment for an MRI this coming Thursday, but given an intractable headache last night, he presented to the emergency room. Patient is presently hospitalized, on Decadron and his and friends and daughter and her boyfriend are in the room. He has spoken with neuro surgery, and is aware of the probable underlying diagnosis. He states that his pain is under good control, and he is making jokes with me. Objective: Vital Signs Temp Pulse Resp BP Pulse Ox 37.1 C 76 18 131/87 H 96 08/22/18 22:44 08/23/18 02:48 08/23/18 02:48 08/23/18 04:00 08/23/18 02:48 Laboratory Results 08/23/18 05:57 08/23/18 05:57 08/22/18 08/23/18 08/24/18 05:59 05:59 05:59 Intake Total 250 Balance 250 ICD10 Worksheet Patient Problems: Problems Problem Status Onset Cerebral edema Acute Midline shift of brain Acute Dysphagia Acute
[2018-08-23] MEDS: TESTOSTERONE TD SCH (13:01)
[2018-08-23] MEDS ORDERED: MAGNESIUM HYDROXIDE 30 ML UDCUP PO PRN (15:49)
[2018-08-23] MEDS ORDERED: BISACODYL 10 MG SUPP PR PRN (15:49)
[2018-08-23] MEDS ORDERED: POLYETHYLENE GLYCOL 3350 17 GM PKT PO PRN (15:49)
[2018-08-23] MEDS ORDERED: LACTULOSE 20 GM/30 ML UDCUP PO PRN (15:49)
[2018-08-23] MEDS: oxyCODONE IR 5 MG TAB PO PRN (15:58)
[2018-08-23] MEDS ORDERED: SODIUM CL NASAL 45 ML BTL EACHNARE PRN (21:15)
[2018-08-23] MEDS: AMITRIPTYLINE HCL 100 MG TAB PO SCH (21:54)
[2018-08-23] MEDS: SENNOSIDES/DOCUSATE SODIUM TAB PO SCH (21:54)
[2018-08-23] MEDS: DEXAMETHASONE 4 MG/ML VIAL IVP SCH (21:54)
[2018-08-24] MEDS: DOLUTEGRAVIR PO SCH ×2 (03:19→20:51)
[2018-08-24] MEDS: ABACAVIR PO SCH ×2 (03:19→20:51)
[2018-08-24] MEDS: LAMIVUDINE PO SCH ×2 (03:19→20:51)
[2018-08-24] MEDS: LEVOTHYROXINE 125 MCG TAB PO SCH (04:25)
[2018-08-24] MEDS: DEXAMETHASONE 4 MG/ML VIAL IVP SCH ×3 (04:25→20:51)
[2018-08-24] MEDS: oxyCODONE IR 5 MG TAB PO PRN ×3 (04:30→14:43)
[2018-08-24] MEDS: TESTOSTERONE TD SCH (08:02)
[2018-08-24] MEDS: Fluticasone/Vilanterol [Breo Ellipta 200-25 Mcg Inh] IH SCH (08:02)
--- NOTE | 2018-08-24 08:36 | SOAPPROG ---
SOAP Progress Note Assessment/Plan: Assessment: 63 yo male well known to us. HIV+, prior cervical fusions developed worsening REYES and has right temporal mass on MRI Slight left sided weakness Dr. Jose feels infectious process unlikely. Appreciate input Plan: Surgery Thursday with Dr. Street O smallpox hospital ID and medicine following I discussed plan with patient and his Victorino. D/W Dr. Street 08/24/18 08:31 Subjective: In bed, lying down, comforable. States his REYES and nausea are well controlled. Objective: Vital Signs Temp Pulse Resp BP Pulse Ox 37 C 92 17 103/65 98 08/23/18 16:00 08/24/18 07:46 08/24/18 07:46 08/24/18 07:46 08/23/18 20:00 Laboratory Results 08/23/18 05:57 08/23/18 05:57 08/23/18 08/24/18 08/25/18 05:59 05:59 05:59 Intake Total 250 0 Balance 250 0 PT 12.5 SEC (12.0-15.0) 08/22/18 23:23 INR 0.97 (0.83-1.16) 08/22/18 23:23 Neuro: Awake, alert oriented x 4 FC, no droop strength full throughout except slight left silk screen operator and triceps weakness sens +LT ambulates well ICD10 Worksheet Patient Problems: Problems Problem Status Onset Cerebral edema Acute Midline shift of brain Acute Dysphagia Acute
[2018-08-24] MEDS: EZETIMIBE 10 MG TAB PO SCH (08:59)
[2018-08-24] MEDS: levETIRAcetam 250 MG TAB PO SCH ×2 (08:59→20:51)
[2018-08-24] MEDS: PANTOPRAZOLE SODIUM 40 MG TAB PO SCH (08:59)
[2018-08-24] MEDS: SENNOSIDES/DOCUSATE SODIUM TAB PO SCH ×2 (08:59→20:51)
[2018-08-24] MEDS ORDERED: LACTULOSE 20 GM/30 ML UDCUP PO ONE (09:26)
--- NOTE | 2018-08-24 10:26 | PDMN ---
Medical Necessity Medical necessity: MCG: [facility] neurology- 63yoM presents with worsening REYES x 1 month- MRI shows R temporal mass likely GBM, IV decadron will be initiated with likely debulking/biopsy ( pending) . PMHx: hypothyroidism, HDL,GERD, chronic pain, BPH, HIV, asthma, SZ 20 yrs ago, HAV, ACDF, anticipate > 2 MN ongoing med nec care-
--- NOTE | 2018-08-24 11:05 | HOSPPROG ---
Hospitalist Progress Note Assessment/Plan: # brain mass - suspect GBM; also consider infection (although VL neg and nl CD4 ), lymphoma, other met - plan debulking tomorrow by Dr Street - lisa, pain control # HIV - well controlled, follows with Dr Damon salas # BPH - flomax # hypothyroid - synthroid Subjective: somewhat manic today; asking that we not worry as much about him Objective: Vital Signs Temp Pulse Resp BP Pulse Ox 37 C 92 17 103/65 98 08/23/18 16:00 08/24/18 07:46 08/24/18 07:46 08/24/18 07:46 08/23/18 20:00 Laboratory Results 08/23/18 05:57 08/23/18 05:57 08/23/18 08/24/18 08/25/18 05:59 05:59 05:59 Intake Total 250 0 Output Total 200 Balance 250 0 -200 PT 12.5 SEC (12.0-15.0) 08/22/18 23:23 INR 0.97 (0.83-1.16) 08/22/18 23:23 high risk - Physical Exam Constitutional: other (anxious) Eyes: anicteric sclera Ears, Nose, Mouth, Throat: hearing normal Cardiovascular: No edema Respiratory: no respiratory distress Gastrointestinal: No distension Genitourinary: No salcido in urethra Skin: warm Musculoskeletal: no muscle tenderness Neurologic: AAOx3 Psychiatric: anxious ICD10 Worksheet Patient Problems: Problems Problem Status Onset Dysphagia Acute Cerebral edema Acute Midline shift of brain Acute
--- NOTE | 2018-08-24 11:11 | PCMIDPN ---
Assessment/Plan: 1. Right temporal lobe lesion with mass effect/edema concerning for GBM: Sincerely appreciate neuro surgical assistance. Debulking planned for Thursday at 1:45 pm. As per my note yesterday, clinical suspicion for underlying infection is low. Although the patient is on low-dose methotrexate and is HIV positive (with a longstanding undetectable viral load, and excellent CD4 percentage), his net state of immunosuppression is low, making entities such as toxoplasmosis, tuberculoma, fungal infection or primary MAITRE D' lymphoma less likely. A brain abscess also seems less likely. 2. HIV: Continue Triumeq. Have talked with pharmacy about the need to avoid cation binders during his hospitalization. Of note, the patient's daughter is not aware of his HIV diagnosis in they would like to keep that private for now. 3. Miscellaneous: Unclear how long patient will need corticosteroids. If these will be prolonged , need to consider Pneumocystis prophylaxis. Patient developed a rash with Bactrim and has never been on dapsone. Will check G6PD in anticipation of him possibly requiring corticosteroids moving forward. Over 30 min spent with this patient today. 08/24/18 11:13 Subjective: Pain is well controlled. at bedside. Told me they have a friend who is a neurosurgeon at [facility], and they have conveyed this to , as they would like this neurosurgeon to also see the patient's films. Patient wants to go home and come back for his surgery tomorrow, but he understands why this is not possible. Objective: Triumeq No fevers Vital Signs Temp Pulse Resp BP Pulse Ox 37 C 92 17 103/65 98 08/23/18 16:00 08/24/18 07:46 08/24/18 07:46 08/24/18 07:46 08/23/18 20:00 Laboratory Results 08/23/18 05:57 08/23/18 05:57 08/23/18 08/24/18 08/25/18 05:59 05:59 05:59 Intake Total 250 0 Output Total 200 Balance 250 0 -200 Blood cultures no growth - Physical Exam General Appearance: no apparent distress EENT: No scleral icterus, No thrush Skin: No rash, No embolic lesions ICD10 Worksheet Patient Problems: Problems Problem Status Onset Cerebral edema Acute Midline shift of brain Acute Dysphagia Acute
--- NOTE | 2018-08-24 11:24 | PDINTPN ---
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 # Asthma. Controlled on appropriate medical therapy. Followed by Dr. Howell as outpatient # HIV on FARIA therapy. Excellent compliance with Triumeq with undetectable viral load high CD4 count # brain mass. Right temporal lobe lesion with mass effect and edema. Temperature diagnosis includes malignancy such as glioblastoma, infection. Infection less likely given undetectable viral load high CD4 count as well as lack of infectious symptoms # constipation. No bowel movement in over 4 days # ankylosing spondylitis. On oral methotrexate. Next does do Thursday. Will confirm with Neurosurgery that is okay to give next dose postoperatively. # BPH. controlle on flomax # hypothyroidism PLAN # NPO after midnight # to OR tomorrow with Dr. Street for resection # increased bowel regimen and give lactulose x1 # continue steroids for swelling. If this needs to be continued may need PJP prophylaxis. # continue flomax # continue synthroid # continue inhalers # okay to ambulate off monitor as long as he is accompanied by caregiver # Feeding -NPO after midnight # Analgesia APAP, Oxy # Sedation none # Thromboprophylaxis - hold pharmacologic prophylaxis for OR # Head of bed elevated # Ulcer prophylaxis - not indicated # Glucose SSI # Skin no skin breakdown # Delirium - delirium precautions Subjective: No acute events overnight. Pain better controlled. Still no bowel movement in over 4 days. Taking senna. Asking for Viagra. No new fevers, chills, nausea, vomiting Objective: Vital Signs Temp Pulse Resp BP Pulse Ox 36.6 C 89 14 109/63 93 08/24/18 11:14 08/24/18 11:14 08/24/18 11:14 08/24/18 11:14 08/24/18 11:14 Laboratory Results 08/23/18 05:57 08/23/18 05:57 08/23/18 08/24/18 08/25/18 05:59 05:59 05:59 Intake Total 250 0 Output Total 200 Balance 250 0 -200 PT 12.5 SEC (12.0-15.0) 08/22/18 23:23 INR 0.97 (0.83-1.16) 08/22/18 23:23 Physical Exam - Physical Exam General Appearance: alert, no apparent distress EENT: PERRL/EOMI, normal ENT inspection, pharynx normal Neck: full range of motion, supple Respiratory: chest non-tender, lungs clear, normal breath sounds Cardiac/Chest: normal peripheral pulses, regular rate, rhythm, No edema Abdomen: non-tender, soft, No organomegaly Skin: normal color, warm/dry, No cyanosis Extremities: normal range of motion, non-tender, normal inspection Neuro/Psych: no motor/sensory deficits, alert, normal mood/affect, oriented x 3 , No abnormal cerebellar tests ICD10 Worksheet Patient Problems: Problems Problem Status Onset Cerebral edema Acute Midline shift of brain Acute Dysphagia Acute
--- NOTE | 2018-08-24 13:21 | ASMTCMCOM ---
CM Note CM Note Notes: Pt care discussed in rounds with pt and , Victorino. Plan for pt to go for neurosurgery with Dr. Street tomorrow. CM to follow. Plan: TBD Date Signed: 08/24/2018 01:20 PM Electronically Signed By:KEL Del Toro
[2018-08-24] MEDS: HYDROmorphONE/DILAUDID 1 MG/ML INJ IVP PRN (20:50)
[2018-08-24] MEDS: AMITRIPTYLINE HCL 100 MG TAB PO SCH (20:51)
[2018-08-25] MEDS: NS W/ 20 KCl/L 1,000 ML IV SCH (04:21)
[2018-08-25] MEDS: DEXAMETHASONE 4 MG/ML VIAL IVP SCH (05:49)
[2018-08-25] MEDS ORDERED: GADOBUTROL 10 ML VIAL IVP ONE (06:25)
[2018-08-25] MEDS: oxyCODONE IR 5 MG TAB PO PRN (07:39)
[2018-08-25] MEDS: PANTOPRAZOLE SODIUM 40 MG TAB PO SCH (07:39)
[2018-08-25] MEDS: LEVOTHYROXINE 125 MCG TAB PO SCH (07:39)
[2018-08-25] MEDS: SENNOSIDES/DOCUSATE SODIUM TAB PO SCH (07:39)
[2018-08-25] MEDS: levETIRAcetam 250 MG TAB PO SCH (07:40)
[2018-08-25] MEDS: EZETIMIBE 10 MG TAB PO SCH (07:41)
[2018-08-25] MEDS: TESTOSTERONE TD SCH (07:43)
[2018-08-25] MEDS: Fluticasone/Vilanterol [Breo Ellipta 200-25 Mcg Inh] IH SCH (07:44)
--- NOTE | 2018-08-25 08:58 | SOAPPROG ---
SOAP Progress Note Assessment/Plan: Assessment: 63 yo male well known to us. HIV+, prior cervical fusions developed worsening REYES and has right temporal mass on MRI Slight left sided weakness Dr. Jose feels infectious process unlikely. Appreciate input Plan: Surgery today with Dr. Street NPO Stealth MRI done ID and medicine following I discussed plan with patient and his Victorino. D/W Dr. Street Subjective: In bed, feeling ok. No overnight issues. 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
--- NOTE | 2018-08-25 09:37 | PDINTPN ---
Door Opener Progress Note Assessment/Plan: ASSESSMENT 63-year-old male with HIV on heart therapy with new brain mass concerning for GBM and awaiting OR # Asthma. Controlled on appropriate medical therapy. Followed by Dr. Howell as outpatient # HIV on FARIA therapy. Excellent compliance with Triumeq with undetectable viral load high CD4 count # brain mass. Right temporal lobe lesion with mass effect and edema. DDx includes malignancy such as glioblastoma and infection. Infection less likely given undetectable viral load high CD4 count as well as lack of infectious symptoms or significant leukocytosis # constipation. Large BM last night. # ankylosing spondylitis. On oral methotrexate. Next dose Thursday. Will confirm with Neurosurgery that is okay to give next dose postoperatively. # BPH. controlled on flomax # hypothyroidism PLAN # NPO until after surgery today # to OR with Dr. Street for resection # scheduled senna # continue steroids for swelling. Anticipate weaning off after surgery. # continue Flomax # continue Synthroid # continue inhalers # Feeding -NPO # Analgesia APAP, Oxy # Sedation none # Thromboprophylaxis - hold pharmacologic prophylaxis for OR # Head of bed elevated # Ulcer prophylaxis - not indicated # Glucose SSI # Skin no skin breakdown # Delirium - delirium precautions Subjective: Lactulose given x1 for constipation. Large BM overnight. Feeling better this morning. Excited for surgery. No other events. No new fevers, chills, nausea or vomiting. No chest pain. Objective: Vital Signs Temp Pulse Resp BP Pulse Ox 36.6 C 88 16 116/75 96 08/25/18 07:46 08/25/18 07:46 08/25/18 07:46 08/25/18 07:46 08/25/18 07:46 Laboratory Results 08/23/18 05:57 08/23/18 05:57 08/24/18 08/25/18 08/26/18 05:59 05:59 05:59 Intake Total 0 750 Output Total 200 Balance 0 550 PT 12.5 SEC (12.0-15.0) 08/22/18 23:23 INR 0.97 (0.83-1.16) 08/22/18 23:23 Physical Exam - Physical Exam General Appearance: alert, no apparent distress, mild distress EENT: PERRL/EOMI, normal ENT inspection Neck: full range of motion, normal inspection, No thyromegaly Respiratory: chest non-tender, lungs clear, normal breath sounds, No wheezing Cardiac/Chest: normal peripheral pulses, regular rate, rhythm, No edema Abdomen: non-tender, soft, No organomegaly Skin: normal color, warm/dry, No cyanosis Extremities: normal range of motion, non-tender, No pedal edema Neuro/Psych: no motor/sensory deficits, alert, normal mood/affect, oriented x 3 ICD10 Worksheet Patient Problems: Problems Problem Status Onset Cerebral edema Acute Midline shift of brain Acute Dysphagia Acute
[2018-08-25] MEDS ORDERED: CHLORHEXIDINE GLUC HIBICLENS 118 ML BTL TP ONE (12:53)
[2018-08-25] MEDS ORDERED: BUPIVACAINE/EPI 0.25% 30 ML SDV ONE (12:54)
[2018-08-25] MEDS ORDERED: THROMBIN (BOVINE) 5,000 UNIT VIAL TP ONE (12:55)
[2018-08-25] MEDS ORDERED: LR 1,000 ML IV ONE ×2 (12:55→12:56)
[2018-08-25] MEDS ORDERED: BACITRACIN ZINC 0.5 OZ OINTTUBE TP ONE (12:55)
[2018-08-25] MEDS ORDERED: POVIDONE-IODINE 30 GM OINTTUBE TP ONE (12:55)
[2018-08-25] MEDS ORDERED: GENTAMICIN SULFATE 80 MG/2 ML VIAL ONE ×2 (12:55→14:18)
[2018-08-25] MEDS ORDERED: ceFAZolin 2 GM/DEXTROSE 100 ML IV ONE (13:00)
[2018-08-25] MEDS ORDERED: MIDAZOLAM 2 MG/2 ML VIAL IVP ONE (13:50)
--- NOTE | 2018-08-25 13:50 | PDANEPAE ---
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 ANE Past Medical History - Pulmonary History Hx Oxygen in Use at Home: No Hx Sleep Apnea: Yes Sleep Apnea Screening Result - Last Documented: Positive - Endocrine History Hx Diabetes: No - Chronic Pain History Chronic Pain: No ANE Review of Systems Review of systems is: negative Review of Systems: ANE Patient History - Allergies Allergies/Adverse Reactions: shellfish derived Allergy (Severe, Verified 08/22/18 22:51) Anaphylaxis Sulfa (Sulfonamide Antibiotics) Allergy (Intermediate, Verified 08/22/18 22:51) Rash - Home Medications Home medications: home medication list seen and reviewed Home Medications: Abacavir/Dolutegravir/Lamivudi [Triumeq 600-50-300 mg Tablet] 1 each PO HS 12/28 [Last Taken 08/22/18] Amitriptyline HCl [Elavil 100 MG (*)] 100 mg PO HS 12/28/14 [Last Taken 08/22/18 ] Levothyroxine [Synthroid 125 mcg (*)] 250 mcg PO DAILY06 12/28/14 [Last Taken ] Promethazine HCl [Phenergan 25mg (*)] 25 mg PO Q6H PRN 12/28/14 [Last Taken ] TESTOSTERONE [Androgel 1.62% pump] 1 aide TD DAILY 12/28/14 [Last Taken 08/22/18] Albuterol [Proventil Inhaler HFA (*)] 1 - 2 puffs IH Q4H PRN 05/12/18 [Last Taken 05/11/18] Ezetimibe [Zetia 10 MG (*)] 10 mg PO DAILY 05/12/18 [Last Taken 08/22/18] Folic Acid [Folic Acid 1 MG (*)] 1 mg PO DAILY 05/12/18 [Last Taken 08/22/18] Herbals/Supplements -Info Only 1 ea PO DAILY 05/12/18 [Last Taken 05/12/18] Methotrexate Sodium [Rheumatrex] 17.5 mg PO SA@09 05/12/18 [Last Taken 08/22/18] Omeprazole 40 mg PO DAILY 05/12/18 [Last Taken 08/21/18] oxyCODONE IR [Oxycodone Ir (*)] 5 - 10 mg PO Q4H PRN 05/12/18 [Last Taken ] Fluticasone/Vilanterol [Breo Ellipta 200-25 Mcg INH] 1 each IH DAILY 08/23/18 [ Last Taken 08/22/18] Sumatriptan Succinate [Imitrex] 100 mg PO DAILY PRN 08/23/18 [Last Taken Unknown ] - NPO status NPO Since - Liquids (Date): 08/25/18 NPO Since - Liquids (Time): 07:00 NPO Since - Solids (Date): 08/24/18 NPO Since - Solids (Time): 21:00 - Smoking Hx Smoking Status: Former smoker ANE Labs/Vital Signs - Labs Result Diagrams: 08/23/18 05:57 08/23/18 05:57 - Vital Signs Blood Pressure: 136/81 Heart Rate: 82 Respiratory Rate: 14 O2 Sat (%): 93 Height: 170.18 cm Weight: 70 kg ANE Physical Exam - Airway Neck exam: FROM Mallampati Score: Class 1 Mouth exam: normal dental/mouth exam - Pulmonary Pulmonary: no respiratory distress, clear to auscultation - Cardiovascular Cardiovascular: regular rate and rhythym - ASA Status ASA Status: II ANE Anesthesia Plan Anesthesia Plan: general endotracheal anesthesia Lines/Monitors: arterial line
[2018-08-25] MEDS ORDERED: THROMBIN (BOVINE) 20,000 UNIT VIAL TP ONE (14:04)
--- NOTE | 2018-08-25 14:07 | HOSPPROG ---
Hospitalist Progress Note Assessment/Plan: 63 year old male presented with headaches noted to have brain mass concerning for malignancy. # brain mass - suspect GBM; - plan debulking tomorrow by Dr Street - lisa, pain control # HIV - well controlled, follows with Dr Damon salas # BPH - flomax # hypothyroid - synthroid PPX- SCDs, no heparin Fluids- PO, start after surgery Lytes- WNL Nutrition- NPO Cor- Full Dispo- remain ICU for brain mass, with edema, to OR today for resection/ debulking 40 minutes critical care time spent on the management of this patient. Subjective: still weak on left. wants to make sure his meds dont stop Objective: Vital Signs Temp Pulse Resp BP Pulse Ox 36.9 C 82 14 136/81 H 93 08/25/18 12:57 08/25/18 13:50 08/25/18 13:50 08/25/18 13:50 08/25/18 13:50 Laboratory Results 08/23/18 05:57 08/23/18 05:57 08/24/18 08/25/18 08/26/18 05:59 05:59 05:59 Intake Total 0 750 Output Total 200 Balance 0 550 PT 12.5 SEC (12.0-15.0) 08/22/18 23:23 INR 0.97 (0.83-1.16) 08/22/18 23:23 - Physical Exam Constitutional: no apparent distress, appears nourished, not in pain Eyes: PERRL, anicteric sclera, EOMI Ears, Nose, Mouth, Throat: moist mucous membranes, hearing normal, ears appear normal, no oral mucosal ulcers Cardiovascular: regular rate and rhythym, no murmur, rub, or gallop Respiratory: no respiratory distress, no rales or rhonchi, clear to auscultation Gastrointestinal: normoactive bowel sounds, soft, non-tender abdomen, no palpable masses Genitourinary: no bladder fullness, no bladder tenderness, no renal bruits Skin: no rashes or abrasions, no fluctuance, no induration Musculoskeletal: full muscle strength, no muscle tenderness, normal joint ROM Neurologic: other (mild left sided weakness) Psychiatric: interacting appropriately, not anxious, not encephalopathic, thought process linear Lymph, Heme, Immunologic: no cervical LAD, no supraclavicular LAD ICD10 Worksheet Patient Problems: Problems Problem Status Onset Cerebral edema Acute Midline shift of brain Acute Dysphagia Acute
[2018-08-25] MEDS ORDERED: fentaNYL 100 MCG/2 ML INJ ONE ×6 (14:28→18:14)
[2018-08-25] MEDS ORDERED: PROPOFOL 200 MG/20 ML VIAL ONE (14:28)
[2018-08-25] MEDS ORDERED: PROPOFOL/EMULSION 500 MG/50 ML BOTTLE IV ONE ×2 (14:59→18:14)
[2018-08-25] MEDS ORDERED: KETAMINE 200 MG/20 ML VIAL ONE (14:59)
[2018-08-25] MEDS ORDERED: REMIFENTANIL HCL 1 MG VIAL ONE (14:59)
[2018-08-25] MEDS ORDERED: PAPAVERINE HCL 60 MG/2 ML SDV ONE (17:29)
[2018-08-25] MEDS: GENTAMICIN SULFATE 80 MG/2 ML VIAL ONE ×2 (18:03→19:42)
[2018-08-25] MEDS ORDERED: niCARdipine/NACL 200 ML IV SCH (18:30)
[2018-08-25] MEDS ORDERED: niCARdipine/NACL/200 ML BAG IV ONE (18:30)
[2018-08-25] MEDS ORDERED: niCARdipine/NACL 200 ML IV ONE (18:30)
[2018-08-25] MEDS ORDERED: ONDANSETRON 4 MG/2 ML VIAL IVP PRN (18:51)
[2018-08-25] MEDS ORDERED: fentaNYL 100 MCG/2 ML INJ IVP PRN (18:51)
[2018-08-25] MEDS ORDERED: NALOXONE HCL 0.4 MG/ML INJ IVP PRN (18:51)
[2018-08-25] MEDS ORDERED: PROMETHAZINE HCL 25 MG/ML INJ IVP PRN (18:51)
--- NOTE | 2018-08-25 19:35 | GOP ---
[f rep st] OPERATIVE REPORT DATE OF OPERATION: 08/25/2018 SURGEON: Osito Street MD TECHNICAL TRAINING MANAGER: Kristie Power), PAC. ANESTHESIA: General endotracheal. PREOPERATIVE DIAGNOSIS: Large right temporal tumor with significant surrounding vasogenic edema and mass effect. POSTOPERATIVE DIAGNOSIS: Large right temporal tumor with significant surrounding vasogenic edema and mass effect. PROCEDURE PERFORMED: FINDINGS: Successful tumor resection. SPECIMENS: Right temporal brain mass for frozen and permanent section, as well as some tissue saved for possibility of use in clinical trials in the future. ESTIMATED BLOOD LOSS: 100 cc. DESCRIPTION OF PROCEDURE: After informed consent was obtained from the patient, the patient was brou ght to the operating room and was placed in the supine position on the operating table. A formal tyler e-out was performed, identifying the patient by name, medical record number and date of . Preop erative antibiotics were given. The endotracheal tube was placed and general endotracheal anesthesia was smoothly induced. The patient's head was placed in [place], pinned and turned slightly toward the left side. He was given preoperative Decadron and mannitol. The Stealth was then registered to the scalp and checked for accuracy using known surface landmarks. This was used to localize the area of the tumor and a large reverse ? style craniotomy incision was marked consistent with standard pte rional technique. 10 cc of 0.25% Marcaine with epinephrine was infiltrated in the skin for hemostasi s. The head was then prepped and draped in the normal sterile fashion. The skin incision was made u sing a 10 blade and the subcutaneous tissues were dissected using monopolar electrocautery. Marco A cl ips were placed for hemostasis. Care was taken to preserve the frontal branch of the superficial tem poral artery. Once the entirety of the incision was opened, the temporalis muscle and fascia was ope kasandra in line with the incision and a single myocutaneous flap was retracted anteriorly. Once the keyh ole was identified, 3 bur holes were placed in standard pterional technique with a slightly larger li mb posteriorly for the temporal region. The craniotome was then used to turn a large 5 x 5 cm cranio rhonda flap covering the entirety of the temporal lobe. Dural tack-up stitches were placed. The sphen oid wing was drilled down flush with the skull base and some of the inferior and anterior temporal bari ne was removed using Leksell rongeurs. Once all bleeding was controlled with bipolar electrocautery and Gelfoam, the dura was opened in a curvilinear fashion and flapped anteriorly. The brain was then inspected. The Stealth was used to check the exposure and the operative microscope was brought on t he field and the remainder of the procedure was performed under high-power magnification. The Stealt h was used to map the area and a large vein was coursing inferiorly across the temporal lobe from the sylvian fissure. We used this as our posterior border and using bipolar electrocautery and suction, a corticectomy was made anterior to the vein. The 2nd corticectomy was also made in the superior te mporal gyrus and bipolar electrocautery and suction were used to deepen this. The tumor was encounte red and a piece of tumor was sent for frozen section which came back as favoring high-grade glioma. We continued deepening this down to the fusiform gyrus and these 2 corticectomies were connected, rem oving the anterior inferior portion of the temporal lobe. This was sent to be frozen at -80 degrees for possible use if any further possible research studies. At that point, the arachnoid over the rj vian fissure was opened and careful arachnoid dissection down the sylvian fissure was obtained. The carotid artery was identified and then using the inside out technique, the arachnoid bands were divid ed and the M1 segment was identified. We dissected completely along the M1 identifying the limen ins gris and all of the branches of the MCA. A small anterior temporal artery was coagulated and divided as it coursed into the portion of the temporal lobe that was to be removed. The remaining branches o f the MCA were protected and a few were covered with papaverine-soaked Gelfoam to avoid any vasospasm . At this point, the more anterior portion of the superior temporal gyrus was removed and as the dis section carried deeper, the 3rd nerve was identified leading into the ambient cistern. We were able to remove the temporal lobe along the edge of the tentorium and the posterior cerebral artery was zeus ntified. The brainstem above this was also visualized and the basal vein was visualized as well. Th is area was carefully unlocked with care to monitor the branches of the anterior choroidal artery as they coursed in the ambient cistern. We were then able to unlock the uncus completely and it was rem serafin. Then, using the Stealth, we were able to see that there was still some tumor coursing posterio r toward the hippocampus and this was removed using the ultrasonic aspirator. We continued tumor rem oval until we did not see any further abnormal tissue posteriorly and the remaining portion was remov ed with a sub peel dissection on the insular cortex. The entirety of the cavity was inspected and th ere was no further bleeding. A few small bleeding points were coagulated using bipolar electrocauter y and I did not see any further abnormal tissue. The choroid plexus in the lateral ventricle was vis ualized and the choroidal point was also visualized and was indeed preserved. We checked the entiret y of the cavity. Then, with using the navigation to be sure that there were no further areas of tumo r that we needed to be concerned about. We had removed about 6 cm of the anterior temporal lobe at t his point. At this point, the cavity was lined with Surgicel. The somatosensory and motor-evoked po tentials were again checked and these remained completely stable from the beginning of the case. The MCA vessels were perfusing well and did not appear to be compromised. At this point, the wound was copiously irrigated using gentamicin irrigation and irrigation was completely clear. The dura was th en closed using running 4-0 Nurolon. Several central tack-up stitches were placed and a small graft of DuraGen was used where the dura did not come together. The craniotomy flap was then plated back i n place using Synthes titanium plates and screws. A 10-Yoruba DIANDRA drain was placed in the subgaleal s pace and the temporalis muscle and fascia was closed using interrupted 2-0 Vicryl. The galea was betina sed using interrupted 2-0 Vicryl and the skin was closed using a running 3-0 Monocryl. Sterile dress ing was then placed. The patient was removed from the [place] pins and was awakened in the operatin g room and was extubated and transferred to the PACU in stable condition. There were no operative co mplications. I was scrubbed and present for the entire procedure. All sponge and needle counts isaura ect at the end of the case. SURGEON: Osito Street M.D. PROCEDURE: 1. Right frontotemporal craniotomy. 2. 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 3. Use of the operative microscope. 4. Stealth stereotactic neuronavigation for volumetric gross total resection of tumor. BRIEF CLINICAL HISTORY: Viet Sparks is a 63-year-old man who is HIV positive, who presented to the emergency department a couple of days ago with increasing headaches over about a month's time. H e was found to have a large contrast-enhancing mass in the right temporal lobe medially toward the hi ppocampus with surrounding vasogenic edema and significant mass effect. He was placed on steroids an d his symptoms improved. We discussed the options, but that this was likely a glioblastoma versus a lymphoma. We decided to proceed with biopsy and resection. FLUIDS AND URINE OUTPUT: Per the anesthesia record. DRAIN: Subgaleal DIANDRA. COMPLICATIONS: None. /[id number]/MODL
--- NOTE | 2018-08-25 19:40 | POSTOPPROG ---
Post Op Note Date of Operation: 08/25/18 Surgeon: Osito Street Dietary Aide: Rubia Jackson PA-C (Mirabella) Anesthesia: GET(General Endotracheal) Pre-op Diagnosis: Right temporal brain mass Post-op Diagnosis: same Procedure: Right temporal craniotomy for resection of right temporal brain mass Inf/Abcess present in the surg proc area at time of surgery?: No Depth: Organ Space EBL: 100 Complications: None observed
[2018-08-25] MEDS ORDERED: HYDROCODONE/APAP 10/325 TAB PO PRN (19:44)
[2018-08-25] MEDS ORDERED: niCARdipine/NACL 200 ML IV PRN (19:44)
--- NOTE | 2018-08-25 19:44 | NEUSURGPN ---
Assessment/Plan: S: Patient in ICU , still waking up from surgery O: Somnolent, still waking up from surgery Will follow some commands but wuickly falls back asleep PERRL movement of RUE and LUE seen no movement seen yet from LUE/LLE Incision c/d/i- dressed with telfa A: 63 yo male sp right temporal craniotomy for resection of brain mass P: -Admit to ICU -Q1 hour neuro checks -Check Na BID- goal is normal range (135-145) -Decadron 2 week taper starting at 4mg q6 -Final path pending- frozen path likely favors high grade glioma -Postop MRI in am -PT.OT.PAD EXTRACTION TENDER -Strict SBP goal 90-140- Cardene onboard -Call with any changes in neuro/motor exam - Physician Discussed Patient with : Yenifer Patient Seen by : Yenifer Neurosurgery Physical Exam - Vitals, I&O, Labs I and O 08/24/18 08/25/18 08/26/18 05:59 05:59 05:59 Intake Total 0 750 Output Total 200 Balance 0 550 Weight 70 kg 70 kg 70 kg Intake: Oral (ml) 0 500 IV Intake (ml) 250 Output: Urine (ml) 200 Toilet 200 Other: Intake Quantity Yes Yes Sufficient Number of Voids Toilet 6 2 Vital Signs Temp Pulse Resp BP Pulse Ox 36.9 C 82 14 136/81 H 93 08/25/18 12:57 08/25/18 13:50 08/25/18 13:50 08/25/18 13:50 08/25/18 13:50 Laboratory Results 08/23/18 05:57 08/23/18 05:57 ICD10 Worksheet Patient Problems: Problems Problem Status Onset Cerebral edema Acute Midline shift of brain Acute Dysphagia Acute
[2018-08-25] MEDS ORDERED: *MD ORDERING ONLY-DEXAMETHASONE TAPER PO SCH (19:45)
--- NOTE | 2018-08-25 19:47 | POSTANESTH ---
Post Anesthetic Evaluation Cardiovascular Status: Normal, Stable Respiratory Status: Normal, Stable Level of Consciousness/Mental Status: Unconscious Pain Control: Adequate, Prn Tx Ordered Nausea/Vomiting Control: Adequate, Prn Tx Ordered Complications Possibly Related to Anesthesia: None Noted Notes: Pt stable with OA in place in ICU. Not responsive. BG and ABG ordered
[2018-08-25] MEDS: FAMOTIDINE 20 MG TAB PO SCH (21:16)
[2018-08-25] MEDS: ONDANSETRON 4 MG/2 ML VIAL IVP PRN (21:46)
[2018-08-26] MEDS: HYDROmorphONE/DILAUDID 1 MG/ML INJ IVP PRN ×6 (00:52→22:34)
[2018-08-26] MEDS: DEXAMETHASONE 4 MG/ML VIAL IVP SCH ×3 (01:22→08:17)
[2018-08-26] MEDS: ABACAVIR PO SCH ×2 (01:22→21:05)
[2018-08-26] MEDS: LAMIVUDINE PO SCH ×2 (01:22→21:05)
[2018-08-26] MEDS: DEXAMETHASONE 4 MG TAB PO SCH ×4 (01:22→19:11)
[2018-08-26] MEDS: DOLUTEGRAVIR PO SCH ×2 (01:22→21:05)
[2018-08-26] MEDS: AMITRIPTYLINE HCL 100 MG TAB PO SCH ×2 (01:22→20:10)
[2018-08-26] MEDS: levETIRAcetam 250 MG TAB PO SCH ×3 (01:23→20:10)
[2018-08-26 06:01] LABS: PLATELET COUNT 199 10^3/uL (150-400)
--- NOTE | 2018-08-26 07:42 | NEUSURGPN ---
Assessment/Plan: S: Doing well overall. Has expected headache this morning. 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 Street Neurosurgery Physical Exam - Vitals, I&O, Labs I and O 08/25/18 08/26/18 08/27/18 05:59 05:59 05:59 Intake Total 750 1437 Output Total 200 2790 Balance 550 -1353 Weight 70 kg 70 kg 76.8 kg Intake: Oral (ml) 500 IV Intake (ml) 250 IV Infused (ml) 1437 NS W/ 20 KCl/L 1,000 ml @ 957 100 mls/hr IV CONT IAIN Rx#:[id number] niCARdipine/NACL 200 ml @ 480 Titrate IV PRN PRN Rx#: [id number] Output: Urine (ml) 200 2600 Toilet 200 2600 DIANDRA Drain Output (ml) 190 #1 Right Head 190 Other: Intake Quantity Yes Sufficient Number of Voids Toilet 2 Vital Signs Temp Pulse Resp BP Pulse Ox 36.9 C 99 16 116/50 L 93 08/25/18 12:57 08/26/18 04:00 08/26/18 04:00 08/26/18 04:00 08/26/18 04:00 Laboratory Results 08/26/18 05:45 08/26/18 05:45 ICD10 Worksheet Patient Problems: Problems Problem Status Onset Cerebral edema Acute Midline shift of brain Acute Dysphagia Acute
[2018-08-26] MEDS: NS W/ 20 KCl/L 1,000 ML IV SCH (07:53)
[2018-08-26] MEDS: SENNOSIDES/DOCUSATE SODIUM TAB PO SCH ×3 (07:57→20:10)
[2018-08-26] MEDS: LEVOTHYROXINE 125 MCG TAB PO SCH (07:57)
[2018-08-26] MEDS ORDERED: DEXAMETHASONE 4 MG/ML VIAL IVP ONE (08:15)
[2018-08-26] MEDS: Fluticasone/Vilanterol [Breo Ellipta 200-25 Mcg Inh] IH SCH (08:37)
[2018-08-26] MEDS: oxyCODONE IR 5 MG TAB PO PRN ×3 (08:48→20:10)
[2018-08-26] MEDS: FAMOTIDINE 20 MG TAB PO SCH ×2 (08:48→20:10)
[2018-08-26] MEDS: PANTOPRAZOLE SODIUM 40 MG TAB PO SCH (08:48)
[2018-08-26] MEDS: EZETIMIBE 10 MG TAB PO SCH (08:48)
--- NOTE | 2018-08-26 09:39 | PCMIDPN ---
Assessment/Plan: 1. 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 Dr. Jerez will see patient this afternoon to discuss treatment moving forward. 2. HIV: Continue Triumeq. Have talked with pharmacy about the need to avoid cation binders during his hospitalization. If he needs an antacid, please use something other than Tums. Have discontinued Tums from his med list. Of note, the patient's daughter is not aware of his HIV diagnosis in they would like to keep that private for now. 3. Miscellaneous: Unclear how long patient will need corticosteroids. If these will be prolonged , need to consider Pneumocystis prophylaxis. Patient developed a rash with Bactrim and has never been on dapsone. G6PD is pending. Subjective: Events of past 24 hr reviewed. Patient is status post a right frontotemporal craniotomy for a large right temporal mass. Preliminary pathology shows a high- grade glioma. Patient is doing well, walking with physical therapy. He knows where he is an why he is here. There is some obvious left-sided neglect. Objective: Triumeq Decadron Vital Signs Temp Pulse Resp BP Pulse Ox 37.3 C 88 13 126/91 H 95 08/26/18 08:00 08/26/18 08:40 08/26/18 08:40 08/26/18 08:24 08/26/18 08:40 Laboratory Results 08/26/18 05:45 08/26/18 05:45 08/25/18 08/26/18 08/27/18 05:59 05:59 05:59 Intake Total 750 1437 Output Total 200 0000 625 Balance 550 -6654 -784 - Physical Exam General Appearance: alert, no apparent distress, other (Dressing in place over scalp) Skin: No rash Neuro/Psych: oriented x 3 ICD10 Worksheet Patient Problems: Problems Problem Status Onset Cerebral edema Acute Midline shift of brain Acute Dysphagia Acute
[2018-08-26] MEDS: TESTOSTERONE TD SCH (10:27)
--- NOTE | 2018-08-26 11:34 | HOSPPROG ---
Hospitalist Progress Note Assessment/Plan: 63 year old male presented with headaches noted to have brain mass concerning for malignancy. # brain mass - suspect GBM- status post debulking by Dr. Street yesterday. - decadron IV 4mg Q6 today -MRI at noon -systolic 90-140, on cardene gtt -sodium 135-145 -DIRECTOR SPECIALTY,neuro checks -keppra 750 BID # HIV - well controlled, follows with Dr Jose. - triumeq -no cation binders or chelating medications. -if remains on steroids for any length of time may need to consider PJP prophy # BPH - flomax # hypothyroid - synthroid PPX- SCDs, no heparin Fluids- PO, start after surgery Lytes- WNL Nutrition- NPO Cor- Full Dispo- remain ICU for brain mass, with edema, neuro monitoring, 40 minutes critical care time spent on the management of this patient. Subjective: pain fairly severe, like a headache Objective: Vital Signs Temp Pulse Resp BP Pulse Ox 37.3 C 88 13 126/91 H 95 08/26/18 08:00 08/26/18 08:40 08/26/18 08:40 08/26/18 08:24 08/26/18 08:40 Laboratory Results 08/26/18 05:45 08/26/18 05:45 08/25/18 08/26/18 08/27/18 05:59 05:59 05:59 Intake Total 750 1437 Output Total 200 2790 625 Balance 550 -1353 -625 PT 12.5 SEC (12.0-15.0) 08/22/18 23:23 INR 0.97 (0.83-1.16) 08/22/18 23:23 - Physical Exam Constitutional: no apparent distress, appears nourished, not in pain, other ( posterior craniotomy with ruth, appears CDI, ) Eyes: PERRL, anicteric sclera, EOMI Ears, Nose, Mouth, Throat: moist mucous membranes, hearing normal, ears appear normal, no oral mucosal ulcers Cardiovascular: regular rate and rhythym, no murmur, rub, or gallop Respiratory: no respiratory distress, no rales or rhonchi, clear to auscultation Gastrointestinal: normoactive bowel sounds, soft, non-tender abdomen, no palpable masses Genitourinary: no bladder fullness, no bladder tenderness, no renal bruits Skin: no rashes or abrasions, no fluctuance, no induration Musculoskeletal: full muscle strength, no muscle tenderness, normal joint ROM Neurologic: AAOx3, sensation intact bilaterally Psychiatric: interacting appropriately, not anxious, not encephalopathic, thought process linear Lymph, Heme, Immunologic: no cervical LAD, no supraclavicular LAD ICD10 Worksheet Patient Problems: Problems Problem Status Onset Cerebral edema Acute Midline shift of brain Acute Dysphagia Acute
[2018-08-26] MEDS ORDERED: GADOBUTROL 10 ML VIAL IVP ONE (11:35)
--- NOTE | 2018-08-26 12:04 | PDINTPN ---
Desk Representative Progress Note Assessment/Plan: ASSESSMENT 63-year-old male with HIV on heart therapy with new brain mass s/p craniotomy and resection 08/26/18 # Asthma. Controlled on appropriate medical therapy. Followed by Dr. Howell as outpatient # HIV on FARIA therapy. Excellent compliance with Triumeq with undetectable viral load high CD4 count # brain mass. Right temporal lobe lesion with mass effect and edema. s/p resection 08/26/18. Prelim path favors high grade glioma. No e/o infection. # constipation. improved # ankylosing spondylitis. On oral methotrexate. Next dose Thursday. Will confirm with Neurosurgery that is okay to give next dose postoperatively. # BPH. controlled on flomax # hypothyroidism PLAN # speech, PT/OT # Q2 neuro checks for now, okay per NS to reduce to Q4 starting this evening. # scheduled senna # 2 week dexamethasone taper per NS # continue Flomax # continue Synthroid # continue inhalers # Feeding -reg diet # Analgesia APAP, Oxy # Sedation none # Thromboprophylaxis - holding until okay per NS # Head of bed elevated # Ulcer prophylaxis - not indicated # Glucose SSI # Skin no skin breakdown # Delirium - delirium precautions Subjective: Went to OR yesterday for craniotomy and tumor resection. Had large BM day prior. Prelim path favors high grade glioma. Pain well controlled. No fevers, chills, nausea or vomiting. Able to take PO, mild L sided visual field cut otherwise intact Objective: Vital Signs Temp Pulse Resp BP Pulse Ox 37.3 C 96 18 132/59 H 91 L 08/26/18 08:00 08/26/18 09:00 08/26/18 09:00 08/26/18 09:00 08/26/18 09:00 Laboratory Results 08/26/18 05:45 08/26/18 05:45 08/25/18 08/26/18 08/27/18 05:59 05:59 05:59 Intake Total 750 1437 Output Total 200 2790 625 Balance 550 -1353 -625 PT 12.5 SEC (12.0-15.0) 08/22/18 23:23 INR 0.97 (0.83-1.16) 08/22/18 23:23 Physical Exam - Physical Exam General Appearance: alert, no apparent distress EENT: other (craniotomy bandage clean dry and intact) Respiratory: chest non-tender, lungs clear, normal breath sounds Cardiac/Chest: normal peripheral pulses, regular rate, rhythm, edema Abdomen: non-tender, soft Skin: normal color, warm/dry, No cyanosis Extremities: non-tender, normal inspection, No pedal edema, No swelling Neuro/Psych: other (mild visual field deficit, no other gross focal deficits, no significant weakness) ICD10 Worksheet Patient Problems: Problems Problem Status Onset Cerebral edema Acute Midline shift of brain Acute Dysphagia Acute
--- NOTE | 2018-08-26 19:09 | GCON ---
[f rep st] CONSULTATION INPATIENT ONCOLOGY CONSULTATION DATE OF CONSULTATION: 08/26/2018 REQUESTING PHYSICIAN: Dr. Zara Jose REASON FOR CONSULTATION: Newly diagnosed high-grade glioma. HISTORY OF PRESENT ILLNESS: The patient is a 63-year-old man with newly diagnosed high-grade glioma, likely a glioblastoma. He reported headaches for about a month and had some brain imaging which giancarlo wed a 4.9 cm tumor in the right temporal lobe. He was not having any neurological deficits or seizur es. He was taken to the operating room yesterday by Dr. Street who completely resected the tumor. Th e frozen section appeared to be consistent with a glioblastoma, though the final pathology is pending . The patient is complaining of headache but, otherwise, is doing well postoperatively. PAST MEDICAL HISTORY: HIV disease. He is on highly active anti-retroviral therapy and has a good CD 4 count with undetectable viral load. CURRENT MEDICATIONS: Include Elavil, Tessalon Perles, dexamethasone, Zetia, Keppra, Synthroid, metho trexate 17.5 mg p.o. weekly. ALLERGIES: He is allergic to sulfa which causes a rash. FAMILY HISTORY: Noncontributory. SOCIAL HISTORY: He quit smoking 20 years ago. Denies alcohol use currently. 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 He is . REVIEW OF SYSTEMS: Aside from pertinent positives in HPI, 14-point review of systems is negative. PHYSICAL EXAMINATION: VITAL SIGNS: Temperature 37.3, blood pressure 132/59, heart rate 96, oxygen s aturation 91% on 4 L. GENERAL: He was in no acute distress. HEENT: Sclerae anicteric. Oropharynx clear. NECK: Supple, without lymphadenopathy. LUNGS: Clear to auscultation bilaterally. CARDIAC : Regular rate and rhythm. No murmurs, gallops, or rubs. ABDOMEN: Normoactive bowel sounds. Nont lacy. EXTREMITIES: Without edema. 2+ pulses. NEUROLOGICAL: He is alert and oriented x3. Strengt h and sensation were intact. LABORATORY DATA: Basic metabolic panel and CBC were unremarkable. IMPRESSION: This is a 63-year-old man, human immunodeficiency virus positive, with newly diagnosed b rain tumor, likely high-grade glioma. RECOMMENDATIONS: We discussed that in general these tumors are not curable, but life expectancy can be extended by the use of postoperative radiation and chemotherapy, followed by adjuvant chemotherapy with Temodar. We discussed the potential side effects which include nausea and immunosuppression. Since he is allergic to Bactrim, he will be placed on dapsone for PCP prophylaxis. Given that his HI V is well controlled, I do not think that should pose a limitation to our ability to treat him effect ively for this disease. I emphasized to him that the pathology is preliminary and that the exact histologic diagnosis may andrew nge after careful pathological review. I would like to see him back in my clinic in 1-2 weeks to dis cuss the final results and make arrangements for the next steps in his therapy once he has recovered from surgery. /[id number]/MODL
[2018-08-26] MEDS ORDERED: hydrALAZINE 20 MG/ML VIAL IVP PRN (22:49)
[2018-08-27] MEDS: KETOROLAC 15 MG/1 ML SDV IVP SCH ×4 (01:18→18:31)
[2018-08-27] MEDS: DEXAMETHASONE 4 MG TAB PO SCH ×4 (01:18→18:31)
[2018-08-27] MEDS: ONDANSETRON 4 MG/2 ML VIAL IVP PRN (01:22)
[2018-08-27] MEDS: oxyCODONE IR 5 MG TAB PO PRN ×4 (04:12→20:41)
[2018-08-27] MEDS: LEVOTHYROXINE 125 MCG TAB PO SCH (05:35)
[2018-08-27] MEDS: Fluticasone/Vilanterol [Breo Ellipta 200-25 Mcg Inh] IH SCH (08:34)
[2018-08-27] MEDS: levETIRAcetam 250 MG TAB PO SCH ×2 (09:31→20:40)
[2018-08-27] MEDS: EZETIMIBE 10 MG TAB PO SCH (09:31)
[2018-08-27] MEDS: FAMOTIDINE 20 MG TAB PO SCH ×2 (09:31→20:19)
[2018-08-27] MEDS: PANTOPRAZOLE SODIUM 40 MG TAB PO SCH (09:32)
[2018-08-27] MEDS: TESTOSTERONE TD SCH (09:32)
[2018-08-27] MEDS: SENNOSIDES/DOCUSATE SODIUM TAB PO SCH ×2 (09:32→20:40)
--- NOTE | 2018-08-27 10:38 | NEUSURGPN ---
Date of Surgery: 08/25/18 Post Op Day: 2 Assessment/Plan: 63 yo male POD #2 sp right temporal craniotomy for resection of brain mass P: -Optimize pain control- tylenol/norco for headaches -Q4 hour neuro checks -DIANDRA drain removed without difficulty -MRI Brain done- shows some area of possible stroke but is asymptomatic, shows good resection -Check Na BID- goal is normal range (135-145)- 137 this am -Decadron 2 week taper starting at 4mg q6 -Final path pending- frozen path likely favors high grade glioma -PT.OT.MEDICAL RECORD CODER -Strict SBP goal 90-140 -Call with any changes in neuro/motor exam -Transfer to the floor Discussed with Dr. Street. Subjective: Having pain at the surgical site. Objective: Awake. Alert. PERRL. EOMI Facial expression symmetrical Incision c/d/i Following commands - Physician Discussed Patient with Dr.: Street Neurosurgery Physical Exam - Vitals, I&O, Labs I and O 08/26/18 08/27/18 08/28/18 05:59 05:59 05:59 Intake Total 1437 720 Output Total 2790 1315 Balance -1353 -595 Weight 70 kg 76.8 kg 77 kg Intake: Oral (ml) 400 IV Infused (ml) 1437 320 NS W/ 20 KCl/L 1,000 ml @ 957 320 100 mls/hr IV CONT IAIN Rx#:[id number] niCARdipine/NACL 200 ml @ 480 Titrate IV PRN PRN Rx#: [id number] Output: Urine (ml) 2600 1175 Catheter 625 Toilet 2600 Urinal 550 DIANDRA Drain Output (ml) 190 140 #1 Right Head 190 140 Other: Intake Quantity Yes Sufficient Number of Voids Catheter 1 Toilet 1 Vital Signs Temp Pulse Resp BP Pulse Ox 37.2 C 89 13 111/76 93 08/27/18 08:00 08/27/18 09:00 08/27/18 09:00 08/27/18 09:00 08/27/18 09:00 Laboratory Results 08/26/18 05:45 08/27/18 05:40 ICD10 Worksheet Patient Problems: Problems Problem Status Onset Cerebral edema Acute Midline shift of brain Acute Dysphagia Acute
--- NOTE | 2018-08-27 11:32 | ASMTCMCOM ---
CM Note CM Note Notes: PT/OT are recommending inpatient rehab for the patient. [facility] inpatient rehab states they are submitting insurance auth with [employer] and have accepted the patient. Patient not medically stable yet for d/c. Pain control still being refined. CM following. Date Signed: 08/27/2018 11:31 AM Electronically Signed By:Karol Mcdaniel LCSW
--- NOTE | 2018-08-27 14:30 | PDINTPN ---
Turn Down Attendant Progress Note Assessment/Plan: ASSESSMENT 63-year-old male with HIV on heart therapy with new brain mass s/p craniotomy and resection 08/26/18 # Asthma. Controlled on appropriate medical therapy. Followed by Dr. Howell as outpatient # HIV on FARIA therapy. Excellent compliance with Triumeq with undetectable viral load high CD4 count # R temporal lobe brain mass. s/p resection 08/26/[address]. Prelim path with high-grade glioma. Suspect glioblastoma. Dr. Jerez consulted and now following Prelim path favors high grade glioma. No e/o infection. # constipation. improved # ankylosing spondylitis. On oral methotrexate. Next dose Thursday. # hypothyroidism PLAN # speech, PT/OT # Q4 neuro checks # scheduled senna # 2 week dexamethasone taper per NS # continue Flomax # continue Synthroid # continue inhalers # transfer to floor # Feeding -reg diet # Analgesia APAP, Oxy # Sedation none # Thromboprophylaxis - holding until okay per NS # Head of bed elevated # Ulcer prophylaxis - not indicated # Glucose SSI # Skin no skin breakdown # Delirium - delirium precautions Subjective: DIANDRA drain out without issue. MRI with small symptomatic infarct, other post surgical changes expected. No fevers, chills, nausea, vomiting. Objective: Vital Signs Temp Pulse Resp BP Pulse Ox 37.3 C 79 12 127/85 H 98 08/27/18 12:00 08/27/18 12:51 08/27/18 12:51 08/27/18 12:51 08/27/18 12:51 Laboratory Results 08/26/18 05:45 08/27/18 05:40 08/26/18 08/27/18 08/28/18 05:59 05:59 05:59 Intake Total 1437 720 Output Total 2790 1315 Balance -1353 -595 PT 12.5 SEC (12.0-15.0) 08/22/18 23:23 INR 0.97 (0.83-1.16) 08/22/18 23:23 Physical Exam - Physical Exam General Appearance: alert, no apparent distress EENT: other (Right scalp dressing in place. No new bleeding or swelling. Extraocular movements intact. No conjunctiva pallor) Neck: supple, normal inspection, No thyromegaly Respiratory: No respiratory distress, No accessory muscle use, No stridor Cardiac/Chest: regular rate, rhythm, No edema, No JVD Abdomen: No guarding, No rebound, No rigid Back: Normal inspection Skin: normal color, warm/dry, No cyanosis Extremities: normal range of motion, non-tender, normal inspection Neuro/Psych: other (Left-sided visual field defects. Otherwise current nerves grossly normal) ICD10 Worksheet Patient Problems: Problems Problem Status Onset Cerebral edema Acute Midline shift of brain Acute Dysphagia Acute
--- NOTE | 2018-08-27 14:58 | HOSPPROG ---
Hospitalist Progress Note Assessment/Plan: 63 year old male presented with headaches noted to have brain mass concerning for malignancy. # brain mass - suspect GBM- status post debulking by Dr. Street yesterday. 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 - triumeq -no cation binders or chelating medications. -if remains on steroids for any length of time may need to consider PJP prophy # BPH - flomax # hypothyroid - synthroid PPX- SCDs, no heparin Fluids- PO, start after surgery Lytes- WNL Nutrition- NPO Cor- Full Dispo- safe to transfer to floor. Case discussed with critical care on MD rounds. Subjective: still substantial pain today Objective: Vital Signs Temp Pulse Resp BP Pulse Ox 37.3 C 79 12 127/85 H 98 08/27/18 12:00 08/27/18 12:51 08/27/18 12:51 08/27/18 12:51 08/27/18 12:51 Laboratory Results 08/26/18 05:45 08/27/18 05:40 08/26/18 08/27/18 08/28/18 05:59 05:59 05:59 Intake Total 1437 720 Output Total 2790 1315 210 Balance -1353 -595 -210 PT 12.5 SEC (12.0-15.0) 08/22/18 23:23 INR 0.97 (0.83-1.16) 08/22/18 23:23 - Physical Exam Constitutional: no apparent distress, appears nourished, not in pain Eyes: PERRL, anicteric sclera, EOMI Ears, Nose, Mouth, Throat: moist mucous membranes, hearing normal, ears appear normal, no oral mucosal ulcers Cardiovascular: regular rate and rhythym, no murmur, rub, or gallop Respiratory: no respiratory distress, no rales or rhonchi, clear to auscultation Gastrointestinal: normoactive bowel sounds, soft, non-tender abdomen, no palpable masses Genitourinary: no bladder fullness, no bladder tenderness, no renal bruits Skin: no rashes or abrasions, no fluctuance, no induration Musculoskeletal: full muscle strength, no muscle tenderness, normal joint ROM Neurologic: AAOx3, sensation intact bilaterally Psychiatric: interacting appropriately, not anxious, not encephalopathic, thought process linear Lymph, Heme, Immunologic: no cervical LAD, no supraclavicular LAD ICD10 Worksheet Patient Problems: Problems Problem Status Onset Cerebral edema Acute Midline shift of brain Acute Dysphagia Acute
--- NOTE | 2018-08-27 17:27 | PCMIDPN ---
Assessment/Plan: 1. 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 After long discussion today, he is willing to go to rehabilitation upstairs when ready. He will also proceed with XRT in a few weeks, and chemotherapy as outlined by Dr. Jerez. 2. HIV: Continue Triumeq. Again, if he needs an antacid, please use something other than Tums. Have discontinued Tums from his med list. Of note, the patient's daughter is not aware of his HIV diagnosis in they would like to keep that private for now. 3. Miscellaneous: Decadron taper in process. When pt starts Temodar, will need to initiate Dapsone. G6PD level fine. Also of note, in addition to neurosurgery, pt's would like neurology on board as well, magi given concern about new and subtle neuro deficits. I spoke to Waylon Toro, who will provide backstory to Juan Daniel Teddy on Thursday. This was conveyed to pt's . Over 30 mins spent with pt today. 08/27/18 17:28 Subjective: Working with speech therapy. C/o headache. Seen by Dr. Jerez yesterday. Pt decided to proceed with chemotherapy. Spent quite some time talking to him about need for rehab moving forward. In the end, he was agreeable after talking to me and several of his friends who are employees here at [facility]. Objective: tmax 37.3 Vital Signs Temp Pulse Resp BP Pulse Ox 37.3 C 86 14 134/80 H 97 08/27/18 12:00 08/27/18 17:08 08/27/18 17:08 08/27/18 17:08 08/27/18 17:08 Laboratory Results 08/26/18 05:45 08/27/18 05:40 08/26/18 08/27/18 08/28/18 05:59 05:59 05:59 Intake Total 2427 720 Output Total 4840 1315 210 Balance -1353 -595 -210 ICD10 Worksheet Patient Problems: Problems Problem Status Onset Cerebral edema Acute Midline shift of brain Acute Dysphagia Acute
[2018-08-27] MEDS: AMITRIPTYLINE HCL 100 MG TAB PO SCH (20:40)
[2018-08-27] MEDS: DOLUTEGRAVIR PO SCH (20:42)
[2018-08-27] MEDS: LAMIVUDINE PO SCH (20:42)
[2018-08-27] MEDS: ABACAVIR PO SCH (20:42)
[2018-08-28] MEDS: KETOROLAC 15 MG/1 ML SDV IVP SCH ×4 (00:24→17:47)
[2018-08-28] MEDS: DEXAMETHASONE 4 MG TAB PO SCH ×4 (00:25→17:48)
[2018-08-28] MEDS: oxyCODONE IR 5 MG TAB PO PRN ×4 (05:23→21:42)
[2018-08-28] MEDS: LEVOTHYROXINE 125 MCG TAB PO SCH (05:23)
[2018-08-28] MEDS: PANTOPRAZOLE SODIUM 40 MG TAB PO SCH (08:18)
[2018-08-28] MEDS: EZETIMIBE 10 MG TAB PO SCH (08:19)
[2018-08-28] MEDS: FAMOTIDINE 20 MG TAB PO SCH (08:19)
[2018-08-28] MEDS: levETIRAcetam 250 MG TAB PO SCH ×2 (08:19→21:42)
[2018-08-28] MEDS: SENNOSIDES/DOCUSATE SODIUM TAB PO SCH ×2 (08:19→21:42)
[2018-08-28] MEDS: DAPSONE 100 MG TAB PO SCH (08:19)
[2018-08-28] MEDS: Fluticasone/Vilanterol [Breo Ellipta 200-25 Mcg Inh] IH SCH (08:20)
[2018-08-28] MEDS: TESTOSTERONE TD SCH (08:23)
[2018-08-28] MEDS ORDERED: METHOTREXATE 2.5 MG TAB PO SCH (09:00)
--- NOTE | 2018-08-28 09:45 | NEUSURGPN ---
Date of Surgery: 08/25/18 Post Op Day: 3 Assessment/Plan: 63 yo male POD #3 sp right temporal craniotomy for resection of brain mass P: -Optimize pain control- tylenol/norco for headaches -Q4 hour neuro checks -MRI Brain done- shows some area of possible stroke, maybe with mild symptoms from this, should improve, shows good resection -Check Na BID- goal is normal range (135-145) -Decadron 2 week taper starting at 4mg q6 -Final path pending- frozen path likely favors high grade glioma -ID following, medicine following for additional issues. -oncology has seen -PT.OT.HEALTH EDUCATOR -SBP goal 90-140 OK for Dispo from NS perspective. -Call with any changes in neuro/motor exam -medsurg status Discussed with Dr. Street. Subjective: much discussion regarding potential diagnosis. States PT has noted some right side neglect. Partner at bedside. Objective: NAD INcision dry/dressed cnii-xii appear grossly intact ? left side neglect/field cut, otherwise visual acuity intact PEARLA, EOMI MAEx4, 5/5= mild dysmetria finger to nose left compared to right SILT - Physician Discussed Patient with : Yenifer Neurosurgery Physical Exam - Vitals, I&O, Labs I and O 08/27/18 08/28/18 08/29/18 05:59 05:59 05:59 Intake Total 720 750 Output Total 1315 210 Balance -595 540 Weight 76.8 kg 70.7 kg Intake: Oral (ml) 400 750 IV Infused (ml) 320 NS W/ 20 KCl/L 1,000 ml @ 320 100 mls/hr IV CONT IAIN Rx#:[id number] Output: Urine (ml) 1175 210 Catheter 625 Urinal 550 210 DIANDRA Drain Output (ml) 140 #1 Right Head 140 Other: Intake Quantity Yes Sufficient Number of Voids Catheter 1 Toilet 1 2 Microbiology 08/23/18 01:20 Blood Culture - Final Blood 08/23/18 01:20 Blood Culture - Final Blood Vital Signs Temp Pulse Resp BP Pulse Ox 36.3 C 77 16 112/73 92 08/28/18 07:30 08/28/18 07:30 08/28/18 07:30 08/28/18 07:30 08/28/18 07:30 Laboratory Results 08/26/18 05:45 08/28/18 05:39 ICD10 Worksheet Patient Problems: Problems Problem Status Onset Cerebral edema Acute Midline shift of brain Acute Dysphagia Acute
--- NOTE | 2018-08-28 13:56 | HOSPPROG ---
Hospitalist Progress Note Assessment/Plan: 63 year old male presented with headaches noted to have brain mass concerning for malignancy. # brain mass - suspect GBM- status post debulking by Dr. Street. 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 - triumeq -no cation binders or chelating medications. -started on dapsone 100mg qd # BPH - flomax # hypothyroid - synthroid PPX- SCDs, no heparin Fluids- PO, start after surgery Lytes- WNL Nutrition- NPO Cor- Full Dispo- safe to transfer to floor. likely transfer to inpatient rehab in next 1- 2 days. Case discussed with critical care on MD rounds. Subjective: pain still an issue. Objective: Vital Signs Temp Pulse Resp BP Pulse Ox 36.3 C 77 16 112/73 92 08/28/18 07:30 08/28/18 07:30 08/28/18 07:30 08/28/18 07:30 08/28/18 07:30 Microbiology 08/23/18 01:20 Blood Culture - Final Blood 08/23/18 01:20 Blood Culture - Final Blood Laboratory Results 08/26/18 05:45 08/28/18 05:39 08/27/18 08/28/18 08/29/18 05:59 05:59 05:59 Intake Total 720 750 Output Total 1315 210 Balance -595 540 PT 12.5 SEC (12.0-15.0) 08/22/18 23:23 INR 0.97 (0.83-1.16) 08/22/18 23:23 - Physical Exam Constitutional: no apparent distress, appears nourished, not in pain Eyes: PERRL, anicteric sclera, EOMI Ears, Nose, Mouth, Throat: moist mucous membranes, hearing normal, ears appear normal, no oral mucosal ulcers Cardiovascular: regular rate and rhythym, no murmur, rub, or gallop Respiratory: no respiratory distress, no rales or rhonchi, clear to auscultation Gastrointestinal: normoactive bowel sounds, soft, non-tender abdomen, no palpable masses Genitourinary: no bladder fullness, no bladder tenderness, no renal bruits Skin: no rashes or abrasions, no fluctuance, no induration Musculoskeletal: full muscle strength, no muscle tenderness, normal joint ROM Neurologic: AAOx3, sensation intact bilaterally Psychiatric: interacting appropriately, not anxious, not encephalopathic, thought process linear Lymph, Heme, Immunologic: no cervical LAD, no supraclavicular LAD ICD10 Worksheet Patient Problems: Problems Problem Status Onset Cerebral edema Acute Midline shift of brain Acute Dysphagia Acute
[2018-08-28] MEDS: AMITRIPTYLINE HCL 100 MG TAB PO SCH (21:42)
[2018-08-28] MEDS: DOLUTEGRAVIR PO SCH (21:47)
[2018-08-28] MEDS: LAMIVUDINE PO SCH (21:47)
[2018-08-28] MEDS: ABACAVIR PO SCH (21:47)
[2018-08-29] MEDS: KETOROLAC 15 MG/1 ML SDV IVP SCH ×3 (00:39→12:12)
[2018-08-29] MEDS: DEXAMETHASONE 4 MG TAB PO SCH ×4 (00:39→20:44)
[2018-08-29 04:46] LABS: PLATELET COUNT 202 10^3/uL (150-400)
[2018-08-29] MEDS: oxyCODONE IR 5 MG TAB PO PRN ×4 (06:26→21:06)
[2018-08-29] MEDS: LEVOTHYROXINE 125 MCG TAB PO SCH (06:26)
[2018-08-29] MEDS: Fluticasone/Vilanterol [Breo Ellipta 200-25 Mcg Inh] IH SCH (07:57)
--- NOTE | 2018-08-29 08:45 | NEUSURGPN ---
Assessment/Plan: 63 yo male POD #4 sp right temporal craniotomy for resection of brain mass. 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 Discussed with Dr. Street. Subjective: has some headache, worse with coughing or hiccups. Otherwise doing OK, ready to go home. We spent a long time discussing issues pertaining to the probable diagnosis. Objective: NAD INcision dry/dressed cnii-xii appear grossly intact left side neglect/field cut, otherwise visual acuity intact PEARLA, EOMI MAEx4, 5/5= mild dysmetria finger to nose left compared to right SILT - Physician Discussed Patient with Dr.: Street Neurosurgery Physical Exam - Vitals, I&O, Labs I and O 08/28/18 08/29/18 08/30/18 05:59 05:59 05:59 Intake Total 750 1250 Output Total 210 Balance 540 1250 Weight 70.7 kg 71.1 kg Intake: Oral (ml) 750 1250 Output: Urine (ml) 210 Urinal 210 Other: Intake Quantity Yes Sufficient Number of Voids Toilet 2 4 Urinal 3 Number of Stools Urinal 0 Microbiology 08/23/18 01:20 Blood Culture - Final Blood 08/23/18 01:20 Blood Culture - Final Blood Vital Signs Temp Pulse Resp BP Pulse Ox 37.1 C 69 18 125/88 H 91 L 08/29/18 07:39 08/29/18 07:57 08/29/18 07:57 08/29/18 07:39 08/29/18 07:57 Laboratory Results 08/29/18 04:26 08/29/18 04:26 ICD10 Worksheet Patient Problems: Problems Problem Status Onset Cerebral edema Acute Midline shift of brain Acute Dysphagia Acute
[2018-08-29] MEDS: SENNOSIDES/DOCUSATE SODIUM TAB PO SCH ×2 (10:14→20:44)
[2018-08-29] MEDS: levETIRAcetam 250 MG TAB PO SCH ×2 (10:14→20:00)
[2018-08-29] MEDS: EZETIMIBE 10 MG TAB PO SCH (10:14)
[2018-08-29] MEDS: PANTOPRAZOLE SODIUM 40 MG TAB PO SCH (10:14)
[2018-08-29] MEDS: DAPSONE 100 MG TAB PO SCH (10:21)
[2018-08-29] MEDS ORDERED: BACLOFEN 10 MG TAB PO ONE (10:59)
[2018-08-29] MEDS: TESTOSTERONE TD SCH (13:22)
--- NOTE | 2018-08-29 13:25 | HOSPPROG ---
Hospitalist Progress Note Assessment/Plan: 63 year old male presented with headaches noted to have brain mass concerning for malignancy. # brain mass - suspect GBM- status post debulking by Dr. Street. 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 - triumeq -no cation binders or chelating medications. -started on dapsone 100mg qd # BPH - flomax # hypothyroid - synthroid #Hiccups- trial of baclofen 5 mg today. PPX- SCDs, no heparin Fluids- PO, start after surgery Lytes- WNL Nutrition- NPO Cor- Full Dispo- safe to transfer to floor. likely transfer to inpatient rehab in next 1- 2 days. Case discussed with critical care on MD rounds. Subjective: still having pain, now has hiccups. Objective: Vital Signs Temp Pulse Resp BP Pulse Ox 37.1 C 69 18 125/88 H 91 L 08/29/18 07:39 08/29/18 07:57 08/29/18 07:57 08/29/18 07:39 08/29/18 07:57 Laboratory Results 08/29/18 04:26 08/29/18 04:26 08/28/18 08/29/18 08/30/18 05:59 05:59 05:59 Intake Total 750 1250 Output Total 210 Balance 540 1250 PT 12.5 SEC (12.0-15.0) 08/22/18 23:23 INR 0.97 (0.83-1.16) 08/22/18 23:23 - Physical Exam Constitutional: no apparent distress, appears nourished, not in pain Eyes: PERRL, anicteric sclera, EOMI Ears, Nose, Mouth, Throat: moist mucous membranes, hearing normal, ears appear normal, no oral mucosal ulcers Cardiovascular: regular rate and rhythym, no murmur, rub, or gallop Respiratory: no respiratory distress, no rales or rhonchi, clear to auscultation Gastrointestinal: normoactive bowel sounds, soft, non-tender abdomen, no palpable masses Genitourinary: no bladder fullness, no bladder tenderness, no renal bruits Skin: no rashes or abrasions, no fluctuance, no induration Musculoskeletal: full muscle strength, no muscle tenderness, normal joint ROM Neurologic: AAOx3, sensation intact bilaterally Psychiatric: interacting appropriately, not anxious, not encephalopathic, thought process linear Lymph, Heme, Immunologic: no cervical LAD, no supraclavicular LAD ICD10 Worksheet Patient Problems: Problems Problem Status Onset Cerebral edema Acute Midline shift of brain Acute Dysphagia Acute
[2018-08-29] MEDS ORDERED: IBUPROFEN 600 MG TAB PO PRN (19:22)
[2018-08-29] MEDS: AMITRIPTYLINE HCL 100 MG TAB PO SCH (20:44)
[2018-08-29] MEDS: LAMIVUDINE PO SCH (20:45)
[2018-08-29] MEDS: DOLUTEGRAVIR PO SCH (20:45)
[2018-08-29] MEDS: ABACAVIR PO SCH (20:45)
[2018-08-29] MEDS ORDERED: DEXAMETHASONE 4 MG TAB PO SCH (21:00)
[2018-08-30] MEDS: KETOROLAC 15 MG/1 ML SDV IVP SCH (00:05)
[2018-08-30] MEDS: LEVOTHYROXINE 125 MCG TAB PO SCH (06:13)
[2018-08-30] MEDS: oxyCODONE IR 5 MG TAB PO PRN ×2 (07:26→12:32)
[2018-08-30 07:43] VITALS: BP 111/74
[2018-08-30] MEDS: DAPSONE 100 MG TAB PO SCH (08:55)
[2018-08-30] MEDS: PANTOPRAZOLE SODIUM 40 MG TAB PO SCH (08:56)
[2018-08-30] MEDS: EZETIMIBE 10 MG TAB PO SCH (08:56)
[2018-08-30] MEDS: SENNOSIDES/DOCUSATE SODIUM TAB PO SCH (08:56)
[2018-08-30] MEDS: DEXAMETHASONE 4 MG TAB PO SCH (08:56)
[2018-08-30] MEDS: levETIRAcetam 250 MG TAB PO SCH (08:56)
[2018-08-30] MEDS: TESTOSTERONE TD SCH (08:58)
[2018-08-30] MEDS: Fluticasone/Vilanterol [Breo Ellipta 200-25 Mcg Inh] IH SCH (09:15)
--- NOTE | 2018-08-30 10:42 | SOAPPROG ---
SOAP Progress Note Assessment/Plan: Assessment: 63 yo M sp right craniotomy for resection of right sided lesion Plan: neuro: stable and doing well overall PT/OT on keppra on decadron likely dc to [facility] today please call with neuro changes follow up with Dr Street in [address] Street 08/30/18 10:40 Subjective: + mild headache, no N/V. No weakness. Objective: Vital Signs Temp Pulse Resp BP Pulse Ox 37.2 C 80 16 111/74 93 08/29/18 20:00 08/30/18 07:41 08/30/18 07:41 08/30/18 07:41 08/30/18 07:41 Laboratory Results 08/29/18 04:26 08/29/18 04:26 08/29/18 08/30/18 08/31/18 05:59 05:59 05:59 Intake Total 1250 980 Balance 1250 980 PT 12.5 SEC (12.0-15.0) 08/22/18 23:23 INR 0.97 (0.83-1.16) 08/22/18 23:23 AAOx4, +FC PERRL, EOMI MELISSA x 4 + light touch C/D/I ICD10 Worksheet Patient Problems: Problems Problem Status Onset Cerebral edema Acute Midline shift of brain Acute Dysphagia Acute
--- NOTE | 2018-08-30 10:54 | ASMTDCNOTE ---
Case Management Discharge Discharge Order Complete? Answers: Yes Patient to Obtain Answers: Other Notes: [facility] Acute Rehab Medications Transportation Arranged Answers: Other Notes: [facility] Acute Rehab Faxed Final Orders Answers: Yes Agency/Facility Transfer Answers: Yes Report Printed & Faxed to Receiving Agency Discharge Comments Notes: [facility] obtained insurance auth today, dc upstairs to [facility] inpt Acute rehab. no other CM needs identified. Date Signed: 08/30/2018 10:53 AM Electronically Signed By:KEL Del Toro
--- NOTE | 2018-08-30 10:57 | ASDISCHSUM ---
Discharge Information Plan Status:Inpatient Rehab Medically Cleared to Leave: Discharge Date:08/30/2018 12:41 PM CM D/C Disposition: ADT D/C Disposition:[facility] IP Projected Discharge Date:08/30/2018 12:00 AM Transportation at D/C: Discharge Delay Reason: Follow-Up Date:08/30/2018 12:00 AM Discharge Slot: Final Diagnosis: Placement Information Referral Type:Palliative Care Referral ID:[id number] Provider Name:[facility] ([facility]) Address 1:[address] [place] Address 2: City:[place] Selection Factors: State:[place] Patient Contact Information Contact Name:SIOMARA Relationship: Address:[address] [place] [address] City:[place] Alternate Phone: State/Zip Code:[place] [address] Email: Financial Information Financial Class:[facility] Primary Plan Desc:[employer] Primary Plan Number:[id number] Secondary Plan Desc: Secondary Plan Number: Assessment Information [facility] CM Progress Note CM Note CM Note Notes: Patient admitted for headaches x one month + nausea and gait instability. He has a hx of HIV (followed by Dr Jose) and recent cervial fusion (in Apr, Dr Marvin). Imaging suggests GBM. 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 Discharge needs TBD. Case Management will follow. Date Signed: 08/23/2018 09:14 AM Electronically Signed By:Dominique Linda RN LACE LACE Length of stay for Answers: 7-13 days current admission Acuity / Level of Answers: Yes Care: Did the patient have an inpatient admission? Comorbidities - select Answers: Any tumor (including all that apply lymphoma or leukemia) Other Notes: HIV # of Emergency department Answers: 1-2 visits in the last 6 months Score: 12 Date Signed: 08/30/2018 10:53 AM Electronically Signed By:KEL Del Toro [facility] CM Progress Note CM Note CM Note Notes: Pt care discussed in rounds with pt and Victorino morse. Plan for pt to go for neurosurgery with Dr. Street tomorrow. CM to follow. Plan: TBD Date Signed: 08/24/2018 01:20 PM Electronically Signed By:KEL Del Toro [facility] CM Progress Note CM Note CM Note Notes: PT/OT are recommending inpatient rehab for the patient. [facility] inpatient rehab states they are submitting insurance auth with [employer] and have accepted the patient. Patient not medically stable yet for d/c. Pain control still being refined. CM following. Date Signed: 08/27/2018 11:31 AM Electronically Signed By:Karol Mcdaniel LCSW Case Management Discharge Plan Note Case Management Discharge Discharge Order Complete? Answers: Yes Patient to Obtain Answers: Other Notes: [facility] Acute Rehab Medications Transportation Arranged Answers: Other Notes: [facility] Acute Rehab Faxed Final Orders Answers: Yes Agency/Facility Transfer Answers: Yes Report Printed & Faxed to Receiving Agency Discharge Comments Notes: [facility] obtained insurance auth today, dc upstairs to [facility] inpt Acute rehab. no other CM needs identified. Date Signed: 08/30/2018 10:53 AM Electronically Signed By:KEL Del Toro [facility] CM Progress Note CM Note CM Note Notes: López from Palliative Care reached out to CM and said PC referal was suppose to be sent to [facility] but wasn't. CM submit one today for [facility] to follow-up with pt while at inpt rehab. CM submit. Date Signed: 08/31/2018 02:01 PM Electronically Signed By:KEL Del Toro Intervention Information
--- NOTE | 2018-08-30 11:29 | PDIAF ---
- Diagnosis Code Status: Full Code - Medication Management Discharge Medications: electronically signed and located in the Home Medication List. - Orders Services needed: Registered Nurse, Physical Therapy, Occupational Therapy Diet Recommendation: no restrictions on diet Diet Texture: Regular Texture Diet, Thin Liquids, Meds Whole in Puree - Follow Up Care Current Providers and Referrals: Zara Jose MD [Primary Care Provider] -
[2018-08-30] MEDS ORDERED: NYSTATIN SUSP 500000 UNIT/5 ML UD LIQ PO SCH (16:00)
--- NOTE | 2018-08-30 16:22 | PDDCSUM ---
Discharge Summary Discharge Summary: Discharge diagnosis Right temporal lobe mass Headache Nausea GERD HIV BPH Asthma Hypothyroid Hyperlipidemia Patient presented to the ER with persistent headache. Imaging revealed a right temporal lobe mass. Neurosurgery was consulted and patient was ultimately taken for a debulking surgery. he did well post operatively. oncology was consulted and patient was seen by Dr. Jerez. Patient was eventually cleared by neurosurgery but needed to go to inpatient rehab for rehabilitation as he had some generalized weakness. He was discharged to inpatient rehab to follow up with neurosurgery and also to see Dr. Jerez for further evaluation and to eventually move forward with chemo radiation. Disposition- inpatient rehab New medications dex taper, otherwise per med rec list. I spent over 30 minutes on the discharge of this patient.
--- NOTE | 2018-08-31 14:02 | ASMTCMCOM ---
CM Note CM Note Notes: López from Palliative Care reached out to CM and said PC referal was suppose to be sent to [facility] but wasn't. CM submit one today for [facility] to follow-up with pt while at inpt rehab. CM submit. Date Signed: 08/31/2018 02:01 PM Electronically Signed By:KEL Del Toro
[2018-09-01] MEDS ORDERED: DEXAMETHASONE 4 MG TAB PO SCH (06:00)
[2018-09-04] MEDS ORDERED: DEXAMETHASONE 2 MG TAB PO SCH (06:00)
[2018-09-07] MEDS ORDERED: DEXAMETHASONE 2 MG TAB PO SCH (18:00)
== END 2018-08-30 12:41 | DRG 25 ==
LOC: EEVIPCON 08-23 00:33 → F2N 08-23 03:01
PROVIDERS: ADMIT Family Medicine; ATTEND Neurological Surgery
PROC: 00B00ZX Excision of Brain, Open Approach, Diagnostic (ICD-10-PCS; principal; 2018-08-25 13:45)
PROC: 4A1004G Monitoring of Central Nervous Electrical Activity, Intraoperative, Open Approach (ICD-10-PCS; principal; 2018-08-25 13:45)
DX: C71.2 Malignant neoplasm of temporal lobe (principal); G93.6 Cerebral edema; K21.9 Gastro-esophageal reflux disease without esophagitis; N40.0 Benign prostatic hyperplasia without lower urinary tract symptoms; J45.909 Unspecified asthma, uncomplicated; E03.9 Hypothyroidism, unspecified; E78.5 Hyperlipidemia, unspecified; Z21 Asymptomatic human immunodeficiency virus [HIV] infection status; E86.9 Volume depletion, unspecified; Z80.3 Family history of malignant neoplasm of breast; K59.00 Constipation, unspecified; M45.9 Ankylosing spondylitis of unspecified sites in spine
CPT/HCPCS: 82955-90; 92507-GN; 92523-GN; 92526-GN; 92610-GN; 96374; 97112-GO; 97112-GP; 97116-GP; 97161-GP; 97164-GP; 97166-GO; 97530-GO; 97530-GP; 97535-GO; A9585; C1713; G0515-GO; J0360; J0690; J1100; J1170; J1580; J1885; J2250; J2405; J2440; J2704; J2765; J3010

== ENCOUNTER 2018-08-30 12:57 | Inpatient (IN) | payer BC | END 2018-09-06 12:50 | disposition still patient (30) | LOC: F3E 12:57 | PROC: F08Z1FZ Dressing Techniques Treatment using Assistive, Adaptive, Supportive or Protective Equipment (ICD-10-PCS; principal; ~2018-08-30) | DX: Z48.3 Aftercare following surgery for neoplasm (principal); I97.811 Intraoperative cerebrovascular infarction during other surgery; R13.10 Dysphagia, unspecified; H53.40 Unspecified visual field defects; G81.94 Hemiplegia, unspecified affecting left nondominant side; G31.84 Mild cognitive impairment of uncertain or unknown etiology; B37.0 Candidal stomatitis; K59.03 Drug induced constipation; Z91.81 History of falling; Z21 Asymptomatic human immunodeficiency virus [HIV] infection status; K21.9 Gastro-esophageal reflux disease without esophagitis; E78.5 Hyperlipidemia, unspecified; N40.0 Benign prostatic hyperplasia without lower urinary tract symptoms; F32.9 Major depressive disorder, single episode, unspecified; J45.909 Unspecified asthma, uncomplicated; E03.9 Hypothyroidism, unspecified; Z87.891 Personal history of nicotine dependence; Z98.1 Arthrodesis status ==